=== PATIENT | male | born 1965 | race Caucasian/White ===

== ENCOUNTER → 2020-11-12 04:28 | Outpatient (CLI) | payer OTHER, SELFPAY ==
[2020-11-13 01:36] LABS: SARS-CoV-2 RNA PCR Negative
== END ==
PROVIDERS: PCP Internal Medicine; Visit Provider Internal Medicine
DX: R68.89 Other general symptoms and signs (principal); Z20.822 Contact with and (suspected) exposure to COVID-19
CPT/HCPCS: C9803; U0003; U0005

== ENCOUNTER → 2022-04-19 07:22 | Outpatient (CLI) | payer BC, SELFPAY ==
--- NOTE | ~2022-04-19 | XR_ITS ---
Right Hand Technique: PA and lateral views were obtained. Clinical History: Polyarthralgia Findings: No acute fracture or dislocation is seen. Osseous alignment is anatomic. There is mild dege nerative change of the interphalangeal joint of the thumb. Soft tissues are unremarkable. Impression: Mild degenerative change of the interphalangeal joint of the thumb. Reviewed, dictated and finalized at location . ESTIMATOR Impression: Mild degenerative change of the interphalangeal joint of the thumb.
--- NOTE | ~2022-04-19 | XR_ITS ---
Left Hand Technique: PA and lateral views were obtained. Clinical History: Polyarthralgia Findings: No acute fracture or dislocation is seen. Osseous alignment is anatomic. Joint spaces are p reserved. Soft tissues are unremarkable. Impression: Unremarkable left hand. Reviewed, dictated and finalized at location M. ATION PROFESSIONAL Impression: Unremarkable left hand.
== END ==
PROVIDERS: PCP Physician Assistant; Visit Provider Physician Assistant
DX: M19.041 Primary osteoarthritis, right hand (principal)
CPT/HCPCS: 73120

== ENCOUNTER 2023-07-31 06:58 | Outpatient (CLI) | payer BC, SELFPAY ==
--- NOTE | ~2023-07-31 | MR_ITS ---
MRI of the left shoulder Technique: Axial proton-density fat-sat images, coronal proton density fat-sat and T2 fat-sat images, and sagittal T1-weighted and T2 fat-sat images were acquired. Clinical History: Rotator cuff injury Findings: There is moderate to advanced AC joint degenerative change, bony productive change of both sides of the joint. Coracoclavicular, coracoacromial, and coracohumeral ligaments are intact. There are full-thickness complete tears involving the entirety of the supraspinatus and infraspinatus tendons, which are retracted to the medial aspect of the humeral head. Fluid-filled gap measures mahesh roximately 4.0 x 4.4 cm in extent. Subscapularis tendon is intact with mild tendinosis. Tendon of the long head of the biceps is probably intact. There is extensive superior labral tearing, probably extending to anterosuperior portion. Inferior glenohumeral ligament is intact. There is chondromalacia of the humeral head. No significant joint effusion evident. No definite muscle atrophy or edema evident. Impression: Complete, full-thickness tears of the entirety of the supraspinatus and infraspinatus tendons, as det jackie above. Superior labral tearing probably extending to the anterosuperior portion. Moderate to advanced AC joint degenerative change. Reviewed, dictated and finalized at [facility]. Impression: Complete, full-thickness tears of the entirety of the supraspinatus and infrasp inatus tendons, as detailed above. Superior labral tearing probably extending to the anterosuperior portion. Moderate to advanced AC joint degenerative change.
== END 2023-07-31 06:59 ==
PROVIDERS: PCP Physician Assistant; Visit Provider Physician Assistant
DX: S46.002D Unspecified injury of muscle(s) and tendon(s) of the rotator cuff of left shoulder, subsequent encounter (principal); X58.XXXD Exposure to other specified factors, subsequent encounter; M19.012 Primary osteoarthritis, left shoulder
CPT/HCPCS: 73221

== ENCOUNTER 2024-07-31 13:57 | Outpatient (CLI) | payer BC, SELFPAY ==
--- NOTE | ~2024-07-31 | XR_ITS ---
EXAMINATION: XR fl inj shoulder LT - MR/CT DATE: 07/31/2024 15:08 INDICATION: Left rotator cuff injury presenting with left shoulder weakness, pain and limited range o f motion post fall one month prior. TECHNIQUE: A time-out was performed to verify the patient's name, date of , and procedure to b e performed. The procedure including the risks, benefits, and alternatives was discussed with the pat ient. Risks discussed included bleeding and infection. The patient understood the risks and agreed to proceed. The skin overlying the rotator cuff interval the left glenohumeral joint was prepped and d raped in usual sterile fashion. Anesthetic was administered with 1% lidocaine subcutaneously. A 22 G needle was advanced under fluoroscopic guidance into the joint. Injection of 1 mL of Omnipaque 240 confirmed intra-articular position of the needle. Subsequently, injectate consisting of 12 mL of 2: 1:1 mixture of sterile saline:Omnipaque 240:1% lidocaine mixed 200:1 with 529 mg/mL Multihance gadoli nium contrast was instilled with intra-articular administration confirmed with intermittent fluorosc opy. The needle was removed and the entry site was cleaned and dressed. There were no immediate comp lications. Fluoroscopy exposure time was 0.2 minutes. The total number of images was 19. Total DAP wa s 0.448 Gycm^2. FINDINGS: Real-time fluoroscopy demonstrates the needle and contrast in the left glenohumeral joint. There is extension of contrast into the subacromial/subdeltoid bursa consistent with a full-thickness rotator cuff tear. IMPRESSION: 1. Successful left glenohumeral joint injection of a dilute gadolinium contrast mixture for subsequen t MRI arthrogram which will be dictated separately. 2. Full-thickness rotator cuff tear indicated by extension of contrast into the subacromial/subdeltoi d bursa. See separate MRI report for further detail. Reviewed, dictated and finalized at location A. IMPRESSION: 1. Successful left glenohumeral joint injection of a dilute gadolinium contrast mixture for subsequent MRI arthrogram which will be dictated separately. 2. Full-thickness rotator cuff tear indicated by extension of contrast into the subacromial/subdeltoid bursa. See separate MRI report for further detail.
--- NOTE | ~2024-07-31 | MR_ITS ---
EXAMINATION: MR shoulder LT w con DATE: 07/31/2024 15:34 INDICATION: Left shoulder weakness TECHNIQUE: Magnetic resonance imaging (MRI) of the left shoulder was performed following intra-artic ular gadolinium contrast injection and without intravenous contrast. Details of the glenohumeral join t injection have been dictated separately. Sequences included axial T2-weighted FS FSE, axial T1-luci ghted FS FSE, coronal oblique T1-weighted FS FSE, coronal oblique T2-weighted FSE, sagittal T2-weight ed FS FSE, sagittal T1-weighted FSE, and ABER (abduction external rotation) T1-weighted FS FSE. COMPARISON: 07/31/2023 FINDINGS: Coracoacromial arch: The acromion undersurface is curved in morphology (type II). Mild thickening of the coracoacromial li gament. Severe acromioclavicular osteoarthritis with change of interval acromioplasty osteotomy along the inferior margin of the distal clavicle. Rotator cuff: Change of interval rotator cuff repair with multiple suture anchors along the greater tuberosity. The re is a recurrent full-thickness tear involving the posterior half of the supraspinatus tendon and es sentially entire infraspinatus tendon. The tear defect measures approximately 3.5 cm AP by 5 cm media l collateral. The teres minor tendon is normal. Mild subscapularis tendinopathy without discrete tear . There is mild fatty atrophy of the supraspinatus and infraspinatus muscle bellies which is new sinc e the prior study. Biceps tendon, glenoid labrum and glenohumeral cartilage: . Moderate tendinopathy and longitudinal split tearing of the long head biceps tendon. There is a tea r at the 10:30-12:30 position of the superior glenoid labrum. There is partial thickness cartilage lo ss with smooth chondral surface along the humeral head and cephalad glenoid. Bones and other: Normal marrow signal with no edema, fracture or abnormal marrow replacing process. Articular cartilag e appears grossly normal although evaluation is limited on non arthrographic studies. Contrast exten ds through the full-thickness rotator cuff tear into the subacromial/subdeltoid bursa as well as into the acromioclavicular joint space. IMPRESSION: 1. Interval rotator cuff repair with recurrent full-thickness tear involving the posterior half of th e supraspinatus tendon and the entire infraspinatus tendon with mild fatty atrophy of the muscle villagran ies which is new since the prior study. 2. Mild glenohumeral osteoarthritis with SLAP tear along the superior glenoid labrum. 3. Moderate tendinopathy and split tearing of the long head biceps tendon. Reviewed, dictated and finalized at location A. IMPRESSION: 1. Interval rotator cuff repair with recurrent full-thickness tear involving th e posterior half of the supraspinatus tendon and the entire infraspinatus tendo n with mild fatty atrophy of the muscle bellies which is new since the prior st udy. 2. Mild glenohumeral osteoarthritis with SLAP tear along the superior glenoid l abrum. 3. Moderate tendinopathy and split tearing of the long head biceps tendon.
--- OUTSIDE RECORDS SUMMARY | 2024-07-31 14:04 | XMS_ITS | Data Portability ---
[facility] Organization [facility] Address [address] [place] [address] Assessment No assessment recorded. Plan of Treatment Reminders Order Date Submit Date Provider Last Modified By Organization Details Last Modified Time Details Appointments ANY 15 2024 07:30A M MAG Nj Not available Not available Not available Lab HbA1c (hemoglo bin A1c), blood 2023 [facility], [address], [place], [address], 06/26/2024 12:38:24 CMP, serum or plasma 2023 024 CHRISTOPHER [email or web address] [facility], [address], [place], [address], 06/26/2024 12:38:24 CBC w/ auto diff 2023 024 CHRISTOPHER [email or web address] [facility], [address], [place], [address], 06/26/2024 12:38:24 TSH + free T4, serum 2023 024 CHRISTOPHER [email or web address] [facility], [address], [place], [address], 06/26/2024 12:38:23 lipid panel, serum 2023 024 [email or web address] [employer] [facility], [address], [place], [address], 11/15/2023 11:15:27 CMP, serum or plasma 2023 024 [email or web address] [facility], [address], [place], [address], 11/15/2023 11:15:28 CBC w/ auto diff 2023 024 [email or web address] [facility], [address], [place], [address], 11/15/2023 11:15:28 vitamin B12 + folate, serum or blood 2023 024 [email or web address] [facility], [address], [place], [address], 11/15/2023 11:15:28 urinalys is, dipstick , reflex micro 2023 024 [email or web address] [facility], [address], [place], [address], 11/15/2023 11:15:28 PSA, serum or plasma 2023 024 [email or web address] [facility], [address], [place], [address], 11/15/2023 11:15:28 HbA1c (hemoglo bin A1c), blood 2023 024 [email or web address] [facility], [address], [place], [address], 11/15/2023 11:15:27 microalb umin/cre atinine, mass ratio, urine 2023 024 [email or web address] [facility], [address], [place], [address], 11/15/2023 11:15:27 TSH + free T4, serum 2023 024 [email or web address] [facility], [address], [place], [address], 11/15/2023 11:15:27 Referral None recorded . Procedures home sleep testing (PROC) 2023 024 [facility], [address] [place], [address], 06/23/2024 16:10:42 Surgeries None recorded . Imaging None recorded . Medication Orders None recorded . Patient TargetsNo targets recorded. Patient Instructions Encounter Date Encounter Id Patient Instructions Last Modified By Organization Details Last Modified Time 09/05/2023 [id number] A healthy lifestyle: care instructions Not available 09/05/2023 09:26:24 03/04/2024 [id number] A healthy lifestyle: care instructions Not available 03/04/2024 11:39:43 Reason for Referral None Reported. Results Created Date Observation Date Name Description Value Unit Range Abnormal Flag Note LastModifiedBy Organization Detail LastModifiedTime Result Notes None recorded. Problems Name Problem SNOMED Code Status Onset Date Resolution Date Notes Provider Name and Address Organization Details Recorded Time Hypothyroidism 10991926 Active 2023 MAG Nj Attn: Royal kasper,[address] [place], [address], [facility] 4 09:13:06 Benign essential hypertension 8424834 Active 2023 MAG Nj Attn: Royal kasper,[address] [place], [address], [facility] 4 09:13:06 Uncontrolled type 2 diabetes mellitus 746629421 Active 2023 MAG Nj Attn: Royal kasper,[address] [place], [address], [facility] 4 09:13:07 Body mass index 30+ - obesity 830646958 Active 2023 MAG Nj Attn: Royal kasper,[address] [place], [address], [facility] 4 09:13:08 Obesity 553996320 Active 2023 MAG Nj Attn: Royal kasper,[address] [place], [address], [facility] 4 09:13:09 Long-term drug therapy Active 2023 MAG Nj Attn: Royal kasper,[address] [place], [address], [facility] 4 11:29:55 Sleep apnea 39179967 Active 2023 MAG Nj Attn: Royal kasper,[address] [place], [address], [facility] 4 20:13:05 Psoriatic arthritis 565087122 Active 2023 MAG Nj Attn: Royal kasper,[address] [place], [address], [facility] 4 20:20:51 Problem Notes None recorded. Procedures Surgical History Date Name Laterality Status Provider Name and Address Organization Details Recorded Time Shoulder joint surgery completed Luz Marina Healy LPN [place] [facility] 03/04/2024 11:22:35 Imaging Results None recorded. Procedure Notes None recorded. Medical Equipment None Reported. Allergies Allergen ID Allergen Name Allergen Category Reaction Reaction Severity Criticality Documentation Date Start Date Code Code System Note Provider Name and Address Organization Details Recorded Time 359141 hydrocodo ne Not available Not available Not available Not available 09/05/2023 5489 RxNorm ANA ROSA Lopez, [facility] 4 09:02:32 278463 Tylenol medicatio n Not available Not available Not available 09/05/202326788 3 RxAlinarm ANA ROSA Lopez, [facility] 4 09:02:37 Medications Name Sig Start Date Stop Date Status Note LastModified by Organization Details LastModified Time FreeStyle Mary 2 Sensor use as directed 2023 active Not Available Not Available Not Avai lable FreeStyle Mary 2 Plus sensor Use 1 sensor every 15 days 2024 active Not Available Not Available Not Avai lable pioglitazon e 15 mg tablet TAKE 1 TABLET BY MOUTH DAILY 2024 active Not Available Not Available Not Avai lable metformin 500 mg tablet TAKE 2 TABLETS BY MOUTH TWICE DAILY WITH MEALS 2024 active Not Available Not Available Not Avai lable meloxicam 15 mg tablet active Not Available Not Available Not Available ondansetron HCl 4 mg tablet TAKE 1 TABLET BY MOUTH EVERY 4 TO 6 HOURS NEEDED active Not Available Not Available No t Available tramadol 50 mg tablet active Not Available Not Available No t Available methotrexat e sodium 2.5 mg tablet active Not Available Not Available Not Available levothyroxi ne 125 mcg tablet TAKE 1 TABLET BY MOUTH DAILY 2024 active Not Available Not Available Not Avai lable glimepiride 4 mg tablet 09/04 completed Not Available Not Available Not Available folic acid 1 mg tablet active Not Available Not Available Not Available losartan 100 mg tablet TAKE 1 TABLET BY MOUTH EVERY DAY 2024 active Not Available Not Available Not Avai lable amoxicillin 875 mg-potassiu m clavulanate 125 mg tablet TAKE 1 TABLET BY MOUTH EVERY 12 HOURS 07/26 completed Not Available Not Available Not Available vardenafil 20 mg tablet active Not Available Not Available Not Available tadalafil 20 mg tablet TAKE 1 TABLET BY MOUTH EVERY DAY NEEDED active Not Available Not Available No t Available BD Ultra-Fine Mini Pen Needle 31 gauge x 06/07 USE TO INJECT INSULIN TWICE DAILY DIRECTED active Not Available Not Available No t Available varenicline tartrate 1 mg tablet TAKE 1 TABLET BY MOUTH TWICE DAILY 09/04 completed Not Available Not Available Not Available varenicline tartrate 0.5 mg (11)-1 mg (42) tablets in a dose pack USE DIRECTED 09/04 completed Not Available Not Available Not Available Humalog KwikPen (U-100) Insulin 100 unit/mL subcutaneou s INJECT 12 UNITS SUBCUTANE OUSLY 3 TIMES DAILY NEEDED PER SLIDING SCALE active Not Available Not Available No t Available Jardiance 25 mg tablet TAKE 1 TABLET BY MOUTH DAILY 2024 active Not Available Not Available Not Avai lable Tresiba FlexTouch U-100 insulin 100 unit/mL (3 mL) subcutaneou s pen ADMINISTE R 35 UNITS UNDER THE SKIN EVERY NIGHT active Not Available Not Available No t Available FreeStyle Mary 2 Sensor kit USE DIRECTED TO MONITOR GLUCOSE. CHANGE SENSOR EVERY 14 DAYS active Not Available Not Available No t Available Vitals Date Recorded Body height Body mass index (BMI) Body weight Respiratory rate Oxygen saturation Oxygen saturation in Arterial blood by Pulse oximetry Heart rate Systolic blood pressure Diastolic blood pressure Provider Name and Address Organization Details Last Updated DateTime 4 185.42 cm 34.5 kg/m2 795075. 33 g 20 /min 98 % 98 % 67 /min 126 mm[Hg] 82 mm[Hg] Kaleb Hartley MA [facility] 09:09:50 Date Recorded Body height Body mass index (BMI) Body weight Heart rate Body temperature Oxygen saturation Oxygen saturation in Arterial blood by Pulse oximetry Systolic blood pressure Diastolic blood pressure Provider Name and Address Organization Details Last Updated DateTime 4 185.42 cm 34.4 kg/m2 632101. 61 g 72 /min 98.7 [degF] 100 % 100 % 140 mm[Hg] 80 mm[Hg] Luz Marina Healy LPN [facility] 11:21:00 Date Recorded Respiratory rate Systolic blood pressure Diastolic blood pressure Provider Name and Address Organization Details Last Updated DateTime 03/04/2024 18 /min 138 mm[Hg] 80 mm[Hg] MAG Nj Attn: [address] [place], [address], [facility] 03/04/2024 11:39:28 Social History Question Answer Notes LastModified by Organizat ion Details LastModified Time Tobacco Smoking Status Never Smoker Kaleb Hartley MA null, [facility] 09/05/2023 09:05:28 Do You Have An Advance Directive? Yes Will Information not available 09/05/2023 What Is Your Level Of Alcohol Consumption? Occasional Information not available 09/05/2023 Are You Blind Or Do You Have Difficulty Seeing? No Glasses Information not available 09/05/2023 What Is Your Level Of Caffeine Consumption? Moderate Information not available 09/05/2023 In The 14 Days Before Symptom Onset, Have You Had Close Contact With A Laboratory-confir med COVID-19 While That Case Was Ill? No Information not available 09/04/2023 In The 14 Days Before Symptom Onset, Have You Had Close Contact With A Person Who Is Under Investigation For COVID-19 While That Person Was Ill? No Information not available 09/04/2023 Have You Been To An Area Known To Be High Risk For COVID-19? No Information not available 09/04/2023 Are You Currently Employed? Yes Information not available 09/05/2023 Are You Deaf Or Do You Have Serious Difficulty Hearing? No Information not available 09/05/2023 What Type Of Diet Are You Following? REGULAR Information not available 09/05/2023 Are There Any Guns Present In Your Home? No Information not available 09/05/2023 What Was The Date Of Your Most Recent Tobacco Screening? 09/05/2023 Information not available 09/05/2023 Do You Use Your Seat Belt Or Car Seat Routinely? Yes Information not available 09/04/2023 Do You Have Smoke And Carbon Monoxide Detectors In Your Home? Yes Information not available 09/04/2023 Do You Use Sunscreen Routinely? Yes Information not available 09/05/2023 Has Tobacco Cessation Counseling Been Provided? Yes Information not available 09/04/2023 On What Date Was Tobacco Cessation Counseling Provided? 09/05/2023 Information not available 09/05/2023 Do You Or Have You Ever Used Any Other Forms Of Tobacco Or Nicotine? No Information not available 09/05/2023 Sex: Male Functional Status Question Answer Note LastModified by Organizat ion Details LastModified Time Are you able to care for yourself? Yes Information not available 09/04/2023 What is your exercise level? Occasional Information not available 09/05/2023 Mental Status None recorded. Family History Relationship Description Onset Age of this Age Resolved Age Notes LastModified by Organization Details LastModified Time Father Harmful pattern of use of alcohol tcarterma Not available 2023 10:20:06 Father Hypertensive disorder tcarterma Not available 2023 10:20:33 Sister Harmful pattern of use of alcohol tcarterma Not available 2023 10:20:06 Sister Blood coagulation disorder tcarterma Not available 2023 10:20:13 Sister Diabetes mellitus tcarterma Not available 2023 10:20:19 Sister Disorder of thyroid gland tcarterma Not available 2023 10:20:26 Sister Hypertensive disorder tcarterma Not available 2023 10:20:33 Medical History Condition Response Coronary Artery Disease N Other N Atrial Fibrillation N High Blood Pressure Y Kidney or Bladder Problems N Thyroid Problems Y GI Problems N Depression N COPD N Blood Clots N Skin Problems N Anemia N Heart Attack (DE) N Anxiety Disorder N Diabetes Y Muscle, Joint, or Bone Problems N Seizures/Epilepsy N Acid Reflux (GERD) N Cancer N Stroke N Asthma N Allergies N High Cholesterol N Hepatitis N Liver Disease N Headaches N Heart Failure N Osteoporosis N Immunizations Vaccine Type Date Status Note Provider Nam e and Address Organization Details Recorded Time Influenza, MDCK, quadrivalent, PF 05/31/2019 completed ANA ROSA [place], [place] [facility] 02/24/2024 11:14:57 Influenza, MDCK, quadrivalent, PF 11/24/2022 completed Kaleb Hart[place], [place] [facility] 02/24/2024 11:14:57 Influenza, MDCK, quadrivalent, PF 01/30/2022 completed Kaleb Hart[place], [place] [facility] 02/24/2024 11:14:57 COVID-19, mRNA, LNP-S, PF, 30 mcg/0.3 mL dose 04/30/2020 completed ANA ROSA [place] [facility] 02/24/2024 11:14:57 COVID-19, mRNA, LNP-S, PF, 30 mcg/0.3 mL dose 05/21/2020 completed ANA ROSA [place] [facility] 02/24/2024 11:14:57 COVID-19, mRNA, LNP-S, PF, 30 mcg/0.3 mL dose 01/31/2021 completed Kaleb Hart[place], [place] [facility] 02/24/2024 11:14:57 COVID-19, mRNA, LNP-S, bivalent, PF, 30 mcg/0.3 mL dose 12/08/2021 completed ANA ROSA [place] [facility] 02/24/2024 11:14:57 COVID-19, mRNA, LNP-S, PF, jeremy-sucrose, 30 mcg/0.3 mL 12/17/2022 completed ANA ROSA [place] [facility] 02/24/2024 11:14:57 Tdap 05/27/2023 completed ANA ROSA [place] [facility] 02/24/2024 11:14:57 Influenza, split virus, quadrivalent, PF 12/12/2019 completed ANA ROSA [place] [facility] 02/24/2024 11:14:57 Influenza, split virus, quadrivalent, PF 12/17/2020 completed ANA ROSA [place] [facility] 02/24/2024 11:14:57 Influenza, split virus, quadrivalent, PF 02/02/2016 completed ANA ROSA [place] [facility] 02/24/2024 11:14:57 Influenza, split virus, quadrivalent, PF 03/06/2018 completed ANA ROSA [place] [facility] 02/24/2024 11:14:57 Past Encounters Encounter ID Performer Location Encounter Start Date Encounter Closed Date Diagnosis/Indication Diagnosis SNOMED-CT Code Diagnosis ICD10 Code Diagnosis Note [id number] Nayan Key MD [facility] [place] [address] [place] [address] 09/05/2023 08:51:03 09/05/2023 09:34:54 Body mass index 30+ - obesity 477492891 Z68.34 discussed healthy diet, exercise, controllin g carbohydra sisi and added sugars in the diet Obesity 204950626 E66.8 Uncontroll ed type 2 diabetes mellitus 502561596 E11.65 pt is on oral and insulin therapy, multiple agents. due for updated a1c and albumin labs Benign ess ential hypertension 3933025 I10 stable on losartan 100mg daily. Hypothyroidism 53087146 E03.9 stable on levothyrox ine 125mcg daily. due for updated TFTs Adult heal th examination 953244064 Z00.01 wellness exam completed Cholesterol screening 27 5057003 Z13.220 fasting lipids are due. Screening for malignant neoplasm of prostate 383922755 Z12.5 annual psa due Long-term drug therapy 079239956 Z79.899 full cmp, cbc, b12, folate and ua due. [id number] Nayan Key MD [facility] [place] [address] [place] [address] 03/04/2024 11:14:15 03/04/2024 12:50:28 Uncontrolled type 2 diabetes mellitus 976561772 E11.65 pt is on oral and insulin therapy, multiple agents. due for updated a1c , last A1c was 7.3% on summer labs. Benign ess ential hypertension 2617738 I10 stable on losartan 100mg daily. Blood pressure is 138/80 Hypothyroidism 33776047 E03.9 stable on levothyrox ine 125mcg daily. due for updated TFTs Body mass index 30+ - obesity 833272942 Z68.34 BMI is 34.4 Obesity 020007036 E66.9 discussed healthy diet, exercise, controllin g carbohydra sisi and added sugars in the diet Long-term drug therapy 050334656 Z79.899 CBC and CMP labs are due now. Sleep apnea 42562605 G47 .30 high suspicion preoperati ve anesthesia evaluation letter sent from shoulder surgery and notified that patient needs to have formal sleep study evaluation . Home study ordered with apnea confirmed at by anesthesia during shoulder surgery. Psoriatic arthritis 1563 [address]127 L40.50 patient is managed by Rheumatolo gy and is taking MTX therapy and folic acid therapy. Health Concerns Section Related Observation LastModified by Organization Detai ls LastModified Time None Recorded Concern Status LastModified by Organization Details LastModified Time None Recorded Advance Directives Directive Y: will Payers Encounter Date Sequence Insurance Name Policy Number Policy [place] Covered Member ID [place] Member ID Guarantor Name 09/05/2023 1 [place] [id number] Jabier Joiner [id number] Jabier Joiner 03/04/2024 1 [facility] [id number] Jabier Joiner [id number] Jabier Joiner Notes Date Note Type Note Provider Name and Address Organization Details Recorded Time 4 text/htm l DiabetesReported bypatient.Notes:pt is on humalog kwik pen fast acting and tresiba long acting insulin. also on jardiance and metformin , and pioglitazone therapy. due for labsHypertensionReported bypatient.Notes:on losartan 100mg dailyThyroidReported bypatient.Notes:stable on levothyroxine 125mcg daily. due for labs Psoriatic arthritis hx. on MTX. MAG Nj Attn: Accounting[address] [facility], [place], [address], [facility] 09/26/2023 11:31:57 4 text/htm l DiabetesReported bypatient.Notes:pt is on humalog kwik pen fast acting and tresiba long acting insulin. also on jardiance and metformin , and pioglitazone therapy. due for labsHypertensionReported bypatient.Notes:on losartan 100mg dailyObstructive Sleep Apnea F/UReported bypatient.Quality:worsening; snoring with apnea Onset/Timing:chronic; progressively worse over last 1years Severity:does not limit daily activities Context:lack of adequate sleep;shift work;hypertension Associated Symptoms:excessive sleepiness during the day Prior Tests:thyroid panel; Preop anesthesia evaluation confirmed sleep apnea with a need for formal study Prior opinionPCPNotes:pt is interested in formal sleep study evaluation .ThyroidReported bypatient.Notes:stable on levothyroxine 125mcg daily. due for labs Psoriatic arthritis hx. on MTX. MAG Nj Attn: Accounting[address] [facility], [place], [address], [facility] 03/21/2024 20:30:40
--- OUTSIDE RECORDS SUMMARY | 2024-07-31 14:04 | XMS_ITS | Encounter Summary ---
Author Organization [facility] Address [facility] [place] [address] Care Team Providers Care Accounting System Expert Name Role Phone Ming Torres MD Primary Care Provider [phone] Chica Ramos Primary Care Provider [phone] Encounter Details Date Type Department Care Team (Late st Contact Info) Description 03/06/2018 Abstract HEALTH INFO SRVCS Scanned, Documents Social History Tobacco Use Types Packs/Day Years Used Date Smoking Tobacco: Former Cigarettes 0.5 20 Smokeless Tobacco: Never Alcohol Use Standard Drinks/Week Comments Yes 0 (1 standard drink = 0.6 oz pur e alcohol) less than monthly AUDIT-C Answer Date Recorded Frequency of Alcohol Consumption Monthly or less 03/06/2018 Average Number of Drinks 1 or 2 018 Frequency of Binge Drinking Not on file 02/22 Sex and Gender Information Value Date Recorded Sex Assigned at Male 03/06/2018 2:30 PM INTERNET SALESPERSON Legal Sex Male 10:06 PM CDT Gender Identity Male 03/06/2018 2:30 PM INTERNET SALESPERSON Sexual Orientation Straight 03/06/2018 2: 30 PM INTERNET SALESPERSON documented as of this encounter Functional Status documented as of this encounter Plan of Treatment Not on file documented as of this encounter Visit Diagnoses Not on filedocumented in this encounter Additional Health Concerns Infection Onset Date Last Indicated Resolved Time COVID-19 Rule Out 10/08/2019 10/08/2019 12/07/2019 12:33 AM CDT COVID-19 Rule Out 11/10/2020 11/10/2020 11/17/2020 12:32 AM CDT documented as of this encounter Care Teams Accounting System Expert Relationship Specialty Start Date End Date Ming Torres MD [address] [place] [address] PCP - General 09/27/16 07/10/23 Chica Ramos PA [address] [place] [address] PCP - General PHYSICIAN NURSING PROGRAM MANAGER 07/11/23 documented as of this encounter
--- OUTSIDE RECORDS SUMMARY | 2024-07-31 14:04 | XMS_ITS | Encounter Summary ---
Author Organization [facility] Address [facility] [place] [address] Care Team Providers Care Jewelry Store Manager Name Role Phone Ming Torres MD Primary Care Provider [phone] Chica Ramos Primary Care Provider [phone] Encounter Details Date Type Department Care Team [...] Sex Assigned at Male 03/06/2018 2:30 PM HEARING AID FITTER Legal Sex Male 10:06 PM CDT Gender Identity Male 03/06/2018 2:30 PM HEARING AID FITTER Sexual Orientation Straight 03/06/2018 2: 30 PM HEARING AID FITTER documented as of this encounter Functional Status [...] documented as of this encounter Care Teams Jewelry Store Manager Relationship Specialty Start Date End Date Ming Torres MD [address] [place] [address] PCP - General 09/27/16 07/10/23 Chica Ramos PA [address] [place] [address] PCP - General PHYSICIAN PE ELECTRICAL ENGINEER 07/11/23 documented as of this encounter
--- OUTSIDE RECORDS SUMMARY | 2024-07-31 14:04 | XMS_ITS | CONTINUITY OF CARE DOCUMENT ---
Author Name isaura delarosa Address Unknown Organization [facility] Address [address] [place] [address] [address] [place] [address] Phone [phone] Care Team Providers Care Reactor Operator Name Role Phone isaura delarosa Unavailable Unavailable INSURANCE PROVIDERS Payer name Policy type / Coverage type [place] red democrat ID [facility] [employer] insurance [employer] [id number]
--- OUTSIDE RECORDS SUMMARY | 2024-07-31 14:05 | XMS_ITS | Clinical Summary ---
Author Organization [facility] Address [facility] [place] [address] Care Team Providers Care Counter Caser Name Role Phone Chica Ramos Primary Care Provider [phone] Allergies Active Allergy Reactions Criticality Noted Date Comments Azithromycin Tachycardia 06/05/2018 Dextromethorphan-Guaifenesin Hives Medium 018 Hydrocodone Shakiness 03/06/2018 Acetaminophen Hives 07/11/2023 Medications Blood Glucose Monitoring Suppl (FREESTYLE FREEDOM LITE) w/Device Kit 11/11/19 15 Active Glucose Blood (FREESTYLE LITE) test strip 4 (four) times daily. 11/11/19 15 Active Insulin Pen Needle (NOVOFINE) 32G X 6 MM Misc 07/09/19 12 Active olmesartan 20 MG tabletIndications: Benign essential hypertension Take 1 tablet (20 mg total) by mouth daily. 30 tablet 5 04/11/19 19 Active insulin lispro (HUMALOG KWIKPEN) 100 UNIT/ML injection (PEN)Indications:U ncontrolled type 2 diabetes mellitus with hyperglycemia (CMS/HCC HHS/HCC) Per SS max dose 12 units as needed 5 pen 5 12/18/19 19 Active INVOKANA 300 MG tabletIndications: Uncontrolled type 2 diabetes mellitus with hyperglycemia (CMS/HCC HHS/HCC) TAKE 1 TABLET(300 MG) BY MOUTH DAILY 90 tablet 3 02/13/20 19 Active ibuprofen 800 MG tablet Take 800 mg by mouth every 6 (six) hours as needed for Pain. Active VARDENAFIL 20 MG tabletIndications: Erectile dysfunction of nonorganic origin TAKE 1 TABLET(20 MG) BY MOUTH DAILY NEEDED FOR ERECTILE DYSFUNCTION 10 tablet 5 09/30/19 22 Active Insulin Pen Needle (EASY TOUCH PEN NEEDLES) 31G X 5 MM MiscIndications:Un controlled type 2 diabetes mellitus with hyperglycemia (CMS/HCC HHS/HCC) USE FOUR TIMES DAILY 400 each 1 11/07/19 22 Active metFORMIN (GLUCOPHAGE) 500 MG tabletIndications: Uncontrolled type 2 diabetes mellitus with hyperglycemia (CMS/HCC HHS/HCC) TAKE 2 TABLETS(1000 MG) BY MOUTH TWICE DAILY 180 tablet 3 12/05/19 22 Active JARDIANCE 25 MG tabletIndications: Uncontrolled type 2 diabetes mellitus with hyperglycemia (CMS/HCC HHS/HCC) TAKE 1 TABLET(25 MG) BY MOUTH DAILY 90 tablet 1 12/05/19 22 Active losartan (COZAAR) 100 MG tabletIndications: Benign essential hypertension TAKE 1 TABLET(100 MG) BY MOUTH DAILY 90 tablet 1 12/29/19 22 Active NOVOLOG FLEXPEN 100 UNIT/ML injection (PEN)Indications:U ncontrolled type 2 diabetes mellitus with hyperglycemia (CMS/HCC HHS/HCC) INJECT UNDER THE SKIN PER SLIDING SCALE. MAX DOSE 12 UNITS NEEDED 15 mL 1 01/05/20 22 Active pioglitazone (ACTOS) 15 MG tabletIndications: Uncontrolled type 2 diabetes mellitus with hyperglycemia (CMS/HCC HHS/HCC) TAKE 1 TABLET(15 MG) BY MOUTH DAILY 90 tablet 02/24/20 22 Active levothyroxine (SYNTHROID) 125 MCG tabletIndications: Acquired hypothyroidism TAKE 1 TABLET(125 MCG) BY MOUTH EVERY MORNING 90 tablet 1 04/30/19 23 Active Continuous Blood Gluc Sensor (FREESTYLE GISEL 2 SENSOR) MiscIndications:Ty pe 2 diabetes mellitus with hyperglycemia, with long-term current use of insulin (CMS/HCC HHS/HCC) CHANGE SENSOR EVERY 14 DAYS 2 each 3 05/26/19 23 Active glimepiride (AMARYL) 4 MG tabletIndications: Uncontrolled type 2 diabetes mellitus with hyperglycemia (CMS/HCC HHS/HCC) TAKE 1 TABLET BY MOUTH TWICE DAILY BEFORE BREAKFAST AND SUPPER 180 tablet 3 06/01/19 23 Active insulin degludec (TRESIBA FLEXTOUCH) 100 UNIT/ML Solution Pen-injector injectionIndicatio ns:Uncontrolled type 2 diabetes mellitus with hyperglycemia ([facility]) ADMINISTER 35 UNITS UNDER THE SKIN EVERY NIGHT AT BEDTIME 12 mL 08/09/19 23 Active oxyCODONE immediate release (ROXICODONE) 5 MG immediate release tabletIndications: Acute Pain < 3 Day Supply Take 1 tablet (5 mg total) by mouth every 4 (four) hours as needed for Pain. Indications: Acute Pain < 3 Day Supply 3 tablet 07/11/19 24 Active Active Problems Problem Noted Date Diagnosed Date BMI 32.0-32.9,adult 07/10/2017 Overview (02/07/2018): Transitioned From: Overweight (BMI 25.0-29.9) Granuloma annulare 07/10/2017 Bilateral hip pain 04/30/2016 Low back pain 04/30/2016 Sacroiliac joint pain 02/02/2016 Right shoulder pain 10/06/2014 Supraventricular tachycardia ([facility]) 3 Irregular sleep-wake rhythm, nonorganic origin 1 Erectile dysfunction of nonorganic origin 2011 Benign essential hypertension 11/08/2011 Type 2 diabetes mellitus wit h hyperglycemia, with long-term current use of insulin ([facility]) 11/08/2011 Hypothyroidism 11/08/2011 Nicotine dependence 11/08/2011 Immunizations Immunization Administration Dates Next Due Fluzone 6 Months+ Quad (0.5 mL Prefilled Syringe) 12/12/2019,03/06/2018 Influenza (Generic) 12/11/2011 Influenza Adult (Generic) 12/17/2020,,05/31/2019,2015 PFIZER COVID-19 (ORIGINAL FORMULATION, PURPLE CAP) mRNA, LNP-S, PF, 30 MCG/0.3 ML DOSE 05/21/2020,04/30/2020 Family History Medical History Relation Comments Thyroid Brother Scleroderma Mother Diabetes Sister Thyroid Sister x2 Relation Status Comments Brother Mother Sister Social History Tobacco Use Types Packs/Day Years Used Date Smoking Tobacco: Some Days Cigarettes 0.3 20 Smokeless Tobacco: Never Tobacco Cessation:Ready to Q uit: No; Counseling Given: Yes Comments:1.5 Pack per week Alcohol Use Standard Drinks/Week Comments No 0 (1 standard drink = 0.6 oz pur e alcohol) less than monthly AUDIT-C Answer Date Recorded Frequency of Alcohol Consumption Never 06/05/2018 Average Number of Drinks Not asked 019 Frequency of Binge Drinking Not on file 05/23 PHQ-2 Answer Date Recorded PHQ-2 Score - If the patient scores above 3, please move on to questions 3-9 0 06/15/2020 Sex and Gender Information Value Date Recorded Sex Assigned at Male 03/06/2018 2:30 PM ADJUNCT TRAINER Legal Sex Male 10:06 PM CDT Gender Identity Male 03/06/2018 2:30 PM ADJUNCT TRAINER Sexual Orientation Straight 03/06/2018 2: 30 PM ADJUNCT TRAINER Last Filed Vital Signs Vital Sign Reading Time Taken Comments Blood Pressure 165/102 07/11/2023 4:30 PM CDT notified Pulse 77 07/11/2023 12:58 PM CDT Temperature 36.4 C (97.6 F) 07/11/2023 12:58 PM CDT Respiratory Rate 20 07/11/2023 12:58 PM CDT Oxygen Saturation 97% 07/11/2023 4:30 PM CDT Inhaled Oxygen Concentration - - Weight 113.4 kg (250 lb) 07/11/2023 12:58 PM CDT Height 182.9 cm (6') 07/11/2023 12:58 PM CDT Body Mass Index 33.91 07/11/2023 12:58 PM CDT Plan of Treatment Health Maintenance Due Date Last Done Comments Colorectal Cancer Screening Colonoscopy (10 Years) 1966 Kidney Health Evaluation 1966 Annual Physical 1969 Diabetes: Retinopathy Eye Exam 01/11/1984 Hepatitis C 01/11/1984 DTaP, Tdap and Td Vaccines (1 - Tdap) 1985 Hepatitis B Vaccines (1 of 3 - 19+ 3-dose series) 1985 Pneumococcal Vaccine: 50+ Years (1 of 2 - PCV) 1985 Zoster Vaccines (1 of 2) 01/11/2016 Hemoglobin A1C 05/18/2021 11/15/2020, 05/24, 04/15/2019, Additional history exists Lipid Panel 04/14/2022 04/14/2021, 03/26, 06/05/2018, Additional history exists COVID-19 Vaccine ( season) 2023 01/31/2021, 05/21/2020, 04/30/2020 PHQ-2 (Physician [place]) 03/25/2024 Meningococcal B Vaccine Aged Out No l onger eligible based on patient's age to complete this topic Meningococcal Vaccine Aged Out No cely sherry eligible based on patient's age to complete this topic RSV Immunizations Under 20 Months Aged Out No longer eligible based on patient's age to complete this topic Procedures Procedure Name Priority Date/Time Associated Diagnosis Comments LIPID PANEL Routine 04/14/2021 7:52 AM ADJUNCT TRAINER Uncontrolled type 2 diabetes mellitus with hyperglycemia Benign essential hypertension HEMOGLOBIN, GLYCOSYLATED Routine 11/15/2020 Uncontrolled type 2 diabetes mellitus with hyperglycemia from Last 3 Months or Most Recently Relevant to Health Maintenance Results * (ABNORMAL) LIPID PANEL (04/14/2021 7:52 AM ADJUNCT TRAINER) CHOLESTEROL 185 <200 mg/dL [facility] HDL 51 > OR = 40 mg/dL [facility] TRIGLYCERIDES 88 <150 mg/dL [facility] LDL (CALCULATED) 115(H) mg/dL (calc) [facility] Comment: Reference range: <100 Desirable range <100 mg/dL for primary prevention; <70 mg/dL for patients with CHD or diabetic patients with > or = 2 CHD risk factors. LDL-C is now calculated using the Jesús-Omer calculation, which is a validated novel method providing better accuracy than the Friedewald equation in the estimation of LDL-C. Jesús CALLAWAY et al. SIGRID. 2013;310(19): 4666-5206 (http://education.[employer].Programmr/faq/VIH879) CHOL/HDL RATIO 3.6 <5.0 (calc) [facility] NON HDL CHOLESTEROL 134(H) <130 mg/dL (calc) [facility] Comment: For patients with diabetes plus 1 major ASCVD risk factor, treating to a non-HDL-C goal of <100 mg/dL (LDL-C of <70 mg/dL) is considered a therapeutic option. 04/14/2021 7:52 AM ADJUNCT TRAINER 04/14/2021 7:52 AM ADJUNCT TRAINER Narrative [facility] - 04/15/2021 3:59 AM ADJUNCT TRAINER VARIFIED ALL INFO/HAD INS CARD ON PHONE FASTING:YES FASTING: YES Ming Torres MD LABORATORY Final Result [facility] [address] [id number] * (ABNORMAL) A1C (BACK OFFICE) (11/15/2020) HGB A1C 8.2(A) % [facility] 11/15/2020 Ming Torres MD LABORATORY Final Result Performing Organization Address [facility]/ZIP Co de Phone Number [facility] [address] [place] [address], from Last 3 Months or Most Recently Relevant to Health Maintenance Insurance [facility] Care Teams Counter Caser Relationship Specialty Start Date End Date Chica Ramos PA PCP - General PHYSICIAN ASSISTANT TO THE DEAN 07/11/23
--- OUTSIDE RECORDS SUMMARY | 2024-07-31 14:05 | XMS_ITS | Clinical Summary ---
Author Organization [facility] Address [address] [place] [address] Care Team Providers Care Associate Merchandise Planner Name Role Phone Dar Camara MD Unavailable [phone] Chica Ramos Primary Care Pr ovider Eliz Luong Unavailable [phone] Allergies Active Allergy Reactions Criticality Noted Date Comments Acetaminophen Hives Medium 07/11/2023 Azithromycin Palpitations Low 06/05/2018 Dextromethorphan-Guaifenesi n Hives Medium 03/03/2018 Hydrocodone Sweating Low 01/20/2018 Other Reactions: Pale Medications levothyroxine (SYNTHROID, LEVOTHROID) 150 mcg tablet Take 1 tablet (150 mcg total) by mouth daily 01/20/20 18 Active metFORMIN (GLUCOPHAGE) 500 mg tablet TK 2 TS PO BID 4 12/23/19 18 Active pioglitazone (ACTOS) 15 mg tabletIndication s:type 2 diabetes mellitus TK 1 T PO D IN THE MORNING 5 12/23/19 18 Active BD ULTRA-FINE MINI PEN NEEDLE 31 gauge x 3/16 needle USE UTD 5 01/13/20 18 Active losartan (COZAAR) 100 mg tablet Take 1 tablet (100 mg total) by mouth daily 07/21/19 22 Active empagliflozin (Jardiance) 25 mg tablet Jardiance 25 mg tablet TAKE 1 TABLET BY MOUTH EVERY DAY 12/05/19 22 Active tadalafiL (CIALIS) 20 mg tablet Take 1 tablet (20 mg total) by mouth daily as needed Active HumaLOG 100 unit/mL pen for injection INJECT 12 UNITS SUBCUTANEOUSLY 3 TIMES DAILY NEEDED PER SLIDING SCALE Active insulin degludec (TRESIBA FLEXTOUCH U-100 SUBQ) Inject 35 Units under the skin every evening Active multivit-min/fol ic/vit K/lycop (MEN'S 50 PLUS MULTIVITAMIN ORAL) Take by mouth daily Active ondansetron (ZOFRAN) 4 mg tablet Every 4-6 hours as needed 30 tablet 1 11/21/19 24 Active meloxicam (MOBIC) 15 mg tabletIndication s:Polyarthralgia TAKE 1 TABLET BY MOUTH DAILY 90 tablet 1 11/26/19 24 Active methotrexate 2.5 mg tablet TAKE 8 TABLETS BY MOUTH ONCE WEEKLY 32 tablet 04/10/19 25 Active folic acid (FOLVITE) 1 mg tablet Take 1 tablet (1,000 mcg total) by mouth daily 90 tablet 3 05/06/19 25 Active Active Problems Problem Noted Date Diagnosed Date Traumatic tear of left rotator cuff, initial enc ounter 11/08/2023 Arthritis of left acromioclavicular joint 2023 Impingement syndrome of left shoulder 11/08/2023 Superior glenoid labrum lesion of left shoulder 11/08/2023 Biceps tendonitis on left 11/08/2023 Pain of left thumb 01/23/2023 Assessment & Plan (05/30/2023 9:09 AM CLICKER OPERATOR): Moderate/marked spurring of L 1st CMC joint on US could correlate with mechanical thumb pain. +grind test. Previously discussed USG kenalog injection however he deferred and could reconsider in the future if necessary. Continue meloxicam 15mg daily. Assessment & Plan (01/23/2023 9:49 AM CDT): Moderate/marked spurring of L 1st CMC joint on US could correlate with mechanical thumb pain. +grind test. Discussed USG kenalog injection however he defers at this time. Continue meloxicam 15mg daily. 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 Assessment & Plan (09/24/2023 8:14 AM CDT): Hepatitis panel negative: 03/2022 Assessment & Plan (05/30/2023 8:37 AM CLICKER OPERATOR): Hepatitis panel negative: 03/2022 Assessment & Plan (01/23/2023 9:14 AM CDT): Hepatitis panel negative: 03/2022 Assessment & Plan (11/29/2022 8:55 AM CDT): Hepatitis panel negative: 03/2022 Assessment & Plan (10/17/2022 11:13 AM CDT): Hepatitis panel negative: 03/2022 Assessment & Plan (09/11/2022 10:55 AM CDT): Hepatitis panel negative: 03/2022 Inflammatory arthritis 04/13/2022 Overview (05/03/2022): Labs 04/13/22: Cr 0.93, Ca 10.4, cbc wnl, esr 2, crp 1.1mg/L, hepatitis negative AVISE 04/13/22: +MONICA by romina only XR L hand 04/19/22: unremarkable US Left hand/wrist 05/02/22: 1) Grade 1 power Doppler of the dorsal wrist, grade 2 of the radial scaphoid joint 2) Narrowing with possible bone spurring present of the scapho-lunate joint 3) Small hyper echoic density within the dorsal 1st MCPJ could represent loose body or prior trauma with grade 1 volar power Doppler 4) Moderate synovial thickening of the 2nd MCPJ with erosion of the metacarpal head 5) Marked synovial thickening of the 3rd MCPJ 6) Mild thickening of the 4th and 5th MCPJ; erosion vs ruptured cortical cyst of the 5th metacarpal head 7) Marked synovial thickening of the 2nd and 3rd PIP with grade 1 effusion of the 2nd PIPJ 8) Moderate to marked spurring of the 1st CMC joint Assessment & Plan (09/24/2023 8:42 AM CDT): Low cdai. Initially c/o rash resembling psoriasis on his lower legs and low back and chronic joint pain in the thumbs (L>R). Denies hx of iritis/uveitis. Isolated MONICA on AVISE. L 2nd MCP erosion on hand US suggests an inflammatory arthritis. Based on rash on lower legs and Fhx of daughter and father with PsO, would favor psoriatic arthritis. Moderate/marked spurring of L 1st CMC joint on US could correlate with mechanical thumb pain. Remains on MTX 20mg weekly and meloxicam 15mg daily with good control of his joint symptoms. Overall pain remains tolerable and he defers changes to his treatment plan at this time. Continue MTX 20mg weekly and folic acid 1mg daily. Continue meloxicam 15mg daily. Should he notice increasing joint complaints, would then consider addition of a biologic such as humira due to erosive damage already seen on US. Routine labs today. Follow up in 3-4 months. Sooner if needed. Of note: discussed MTX and surgery and that per ACR guidelines he does not need to hold MTX for rotator cuff repair surgery. Assessment & Plan (05/30/2023 9:11 AM CLICKER OPERATOR): Low cdai. Initially c/o rash resembling psoriasis on his lower legs and low back and chronic joint pain in the thumbs (L>R). Denies hx of iritis/uveitis. Isolated MONICA on AVISE. L 2nd MCP erosion on hand US suggests an inflammatory arthritis. Based on rash on lower legs and Fhx of daughter and father with PsO, would favor psoriatic arthritis. Moderate/marked spurring of L 1st CMC joint on US could correlate with mechanical thumb pain. Remains on MTX 20mg weekly and meloxicam 15mg daily with good control of his joint symptoms. Overall pain remains tolerable and he defers changes to his treatment plan at this time. Continue MTX 20mg weekly and folic acid 1mg daily. Continue meloxicam 15mg daily. Should he notice increasing joint complaints, would then consider addition of a biologic such as humira due to erosive damage already seen on US. Routine labs today. Follow up in 3-4 months. Sooner if needed. Assessment & Plan (01/23/2023 9:49 AM CDT): Low cdai. Initially c/o rash resembling psoriasis on his lower legs and low back and chronic joint pain in the thumbs (L>R). Denies hx of iritis/uveitis. Isolated MONICA on AVISE. L 2nd MCP erosion on hand US suggests an inflammatory arthritis. Based on rash on lower legs and Fhx of daughter and father with PsO, would favor psoriatic arthritis. Moderate/marked spurring of L 1st CMC joint on US could correlate with mechanical thumb pain. Started MTX 15mg weekly in 08/2022 but continues to c/o worsening joint symptoms so increased to 20mg weekly with improvement of baseline pain. Overall pain remains tolerable and he defers changes to his treatment plan at this time. Continue MTX 20mg weekly and folic acid 1mg daily. Continue meloxicam 15mg daily. Should he have trouble reducing meloxicam or notice increasing joint complaints, would then consider addition of a biologic such as humira due to erosive damage already seen on US. Routine labs today. Follow up in 2-3 months. Sooner if needed. Assessment & Plan (11/29/2022 9:10 AM CDT): Moderate cdai. Initially c/o rash resembling psoriasis on his lower legs and low back and chronic joint pain in the thumbs (L>R). Denies hx of iritis/uveitis. Isolated MONICA on AVISE. L 2nd MCP erosion on hand US suggests an inflammatory arthritis. Based on rash on lower legs and Fhx of daughter and father with PsO, would favor psoriatic arthritis. Moderate/marked spurring of L 1st CMC joint on US could correlate with mechanical thumb pain. Started MTX 15mg weekly in 08/2022 but continues to c/o worsening joint symptoms so will increase 20mg weekly. Increase MTX 20mg weekly and continue folic acid 1mg daily. Continue meloxicam 15mg daily. Should he have trouble reducing meloxicam or notice increasing joint complaints, would then consider addition of a biologic such as humira due to erosive damage already seen on US. Follow up at next scheduled visit and will check labs then. Sooner if needed. Assessment & Plan (10/17/2022 11:40 AM CDT): Low cdai. Initially c/o rash resembling psoriasis on his lower legs and low back and chronic joint pain in the thumbs (L>R). Denies hx of iritis/uveitis. Isolated MONICA on AVISE. L 2nd MCP erosion on hand US suggests an inflammatory arthritis. Based on rash on lower legs and Fhx of daughter and father with PsO, would favor psoriatic arthritis. Moderate/marked spurring of 1st CMC joint on US may could correlate with mechanical thumb pain. Started MTX 15mg weekly in 08/2022 with overall improvement of synovitis and pain. Denies any s/e. Will continue MTX 15mg weekly and folic acid 1mg daily. Due to positive response already, will give this more time to reach full effectiveness at current dose before considering increasing. Will reduce meloxicam 15mg to be taken only as needed. Should he have trouble reducing meloxicam or notice increasing joint complaints, would then consider increasing MTX next. Recent labs reviewed with patient. Follow up in 2- 3 months. Sooner if needed. Assessment & Plan (09/11/2022 10:54 AM CDT): 57-year-old male presenting with a PMHx of T2DM, Graves disease, HTN, cataracts, SVT, Shingles (06/2021), and diabetic retinopathy c/o rash resembling psoriasis on his lower legs and low back and chronic joint pain in the thumbs (L>R). Denies hx of iritis/uveitis. Rheumatological work up revealed isolated MONICA by romina only. XR of the bilateral hands was unremarkable. US of the L hand/wrist revealed 2nd MCP erosion and possible erosion vs ruptured cortical cyst of 5th MCP along with inflammatory findings throughout several MCP and PIP joints. US also revealed moderate/marked spurring of 1st CMC joint which could correlate with his mechanical pain. US findings with erosive change are concerning for an inflammatory arthritis. Based on rash on lower legs and Fhx of daughter and father with PsO, would favor psoriatic arthritis. Discussed concerns regarding medication and he is in agreement to start MTX 15mg weekly and folic acid 1mg daily. Okay to continue meloxicam 15mg daily. Will check routine labs next visit. Follow up in 1 month. Sooner if needed. Assessment & Plan (05/17/2022 1:53 PM CLICKER OPERATOR): 57-year-old male presenting with a PMHx of T2DM, Graves disease, HTN, cataracts, SVT, Shingles (06/2021), and diabetic retinopathy c/o rash resembling psoriasis on his lower legs and low back and chronic joint pain in the thumbs (L>R). Denies hx of iritis/uveitis. Rheumatological work up revealed isolated MONICA by romina only. XR of the bilateral hands was unremarkable. US of the L hand/wrist revealed 2nd MCP erosion and possible erosion vs ruptured cortical cyst of 5th MCP along with inflammatory findings throughout several MCP and PIP joints. US also revealed moderate/marked spurring of 1st CMC joint which could correlate with his mechanical pain. US findings with erosive change are concerning for an inflammatory arthritis. Based on rash on lower legs, would favor psoriatic arthritis however he does not have a definitive diagnosis of psoriasis. Recommend further evaluation by a food assembler commissary kitchen. Start MTX 15mg weekly and folic acid 1mg daily. Patient advised of the side effects of the medication, including but not limited to increased risk of infection, GI upset, increased LFTs, mouth sores, rash, diarrhea, and/or blood count abnormalities. Continue meloxicam 15mg daily. Follow up in 1 month. Sooner if needed. Seen with Dr. Camara. Assessment & Plan (04/13/2022 12:29 PM CLICKER OPERATOR): 57-year-old male presenting with a PMHx of T2DM, Graves disease, HTN, cataracts, SVT, Shingles (06/2021), and diabetic retinopathy c/o rash resembling psoriasis on his lower legs and low back and chronic joint pain in the thumbs (L>R). Synovitis is noted in the bilateral hands mainly in the wrists and MCP joints on exam today which is concerning for an inflammatory arthritis. Denies hx of iritis/uveitis. Symptoms and exam are suspicious for psoriatic arthritis. Will order appropriate serologies, radiographs, and a left hand/wrist US to further evaluate. Will stop ibuprofen and start meloxicam 15mg daily. Discussed side effects of the medication, including but not limited to GI upset, kidney, and ulcers. Follow up in 2 weeks. Sooner if needed. Seen with Dr. Camara. Rash 04/13/2022 Assessment & Plan (09/24/2023 8:15 AM CDT): Rash resembling psoriasis on bilateral lower legs (L>R) improved with initiation of MTX. Reports hx of similar rash over the intergluteal cleft. Consider evaluation by derm for definitive diagnosis if rash would worsen. Fhx of daughter and father with psoriasis. Assessment & Plan (05/30/2023 9:08 AM CLICKER OPERATOR): Rash resembling psoriasis on bilateral lower legs (L>R) improved with initiation of MTX. Reports hx of similar rash over the intergluteal cleft. Consider evaluation by derm for definitive diagnosis if rash would worsen. Fhx of daughter and father with psoriasis. Assessment & Plan (01/23/2023 9:47 AM CDT): Rash resembling psoriasis on bilateral lower legs (L>R) improved with initiation of MTX. Consider evaluation by derm for definitive diagnosis if rash would worsen. Fhx of daughter and father with psoriasis. Assessment & Plan (11/29/2022 9:01 AM CDT): Rash resembling psoriasis on bilateral lower legs (L>R) improved with initiation of MTX. Consider evaluation by derm for definitive diagnosis if rash would worsen. Fhx of daughter and father with psoriasis. Assessment & Plan (10/17/2022 11:17 AM CDT): Rash resembling psoriasis on bilateral lower legs (L>R). Recommend otc topical cortisone cream. Suspect PsA so will monitor for improvement with tx of arthritis. Consider evaluation by derm for definitive diagnosis. Fhx of daughter and father with psoriasis. Assessment & Plan (09/11/2022 10:49 AM CDT): Rash resembling psoriasis on bilateral lower legs (L>R). Recommend otc topical cortisone cream. Suspect PsA so will monitor for improvement with tx of arthritis. Consider evaluation by derm for definitive diagnosis. Fhx of daughter and father with psoriasis. Assessment & Plan (05/17/2022 2:37 PM CLICKER OPERATOR): Rash resembling psoriasis on bilateral lower legs (L>R). Recommend otc topical cortisone cream. Suspect PsA so will monitor for improvement with tx of arthritis. Consider evaluation by derm for definitive diagnosis. Pt is going to establish with PCP soon and discuss referral then. Assessment & Plan (04/13/2022 12:34 PM CLICKER OPERATOR): Rash resembling psoriasis on bilateral lower legs (L>R). Recommend otc topical cortisone cream. Suspect PsA so will monitor for improvement with tx of arthritis. If rash worsens, persists could get dermatologic evaluation for further treatment/topicals. Paroxysmal atrial fibrillation 03/03/2018 Encounters Date Type Department Care Team Description 06/25/2024 Telephone [facility] Orthopedics and Sports Medicine [address] [place] [address] [address] [address] Eliz Luong PA 06/18/2024 Orders Only [facility] Orthopedics and Sports Medicine [address] [place] [address] [address] [place] [address] Eliz Luong PA Shoulder weakness (Primary Dx); Traumatic tear of left rotator cuff, unspecified tear extent, subsequent encounter 06/16/2024 Telephone [facility] Orthopedics and Sports Medicine [address] [place] [address] [address] [address] Blanche Juarez MA 05/19/2024 8:15 AM CLICKER OPERATOR Office Visit [facility] Orthopedic and Sports Medicine [address] [place] [id number] Eliz Luong PA Shoulder weakness (Primary Dx); Traumatic tear of left rotator cuff, unspecified tear extent, subsequent encounter from Last 3 Months Medical History Medical History Date Comments Hypertension Diabetes mellitus (HCC) Graves disease RA (rheumatoid arthritis) (HCC) Family History Medical History Relation Name Comments No Known Problems Mother Relation Name Status Comments Mother Social History Tobacco Use Types Packs/Day Years Used Date Smoking Tobacco: Former Cigarettes Smokeless Tobacco: Never Tobacco Cessation:Counseling Given: Not Answered Alcohol Use Standard Drinks/Week Comments No 0 (1 standard drink = 0.6 oz pur e alcohol) AUDIT-C Answer Date Recorded Q1: How often do you have a drink containing alcohol? Never 01/02/2024 Q2: How many drinks containi ng alcohol do you have on a typical day when you are drinking? Patient does not drink Q3: How often do you have si x or more drinks on one occasion? Never 01/02/2024 Personal Safety Answer Date Recorded Have you ever been in or are you currently in a harmful physical or emotional relationship or is someone making you feel afraid or unsafe? Denies 11/21/2023 Sex and Gender Information Value Date Recorded Sex Assigned at Not on file Legal Sex Male 8:29 PM CLICKER OPERATOR Gender Identity Not on file Sexual Orientation Not on file Obstetrics History Last Filed Vital Signs Vital Sign Reading Time Taken Comments Blood Pressure 154/79 05/19/2024 8:18 AM CLICKER OPERATOR Pulse 69 05/19/2024 8:18 AM CLICKER OPERATOR Temperature 36.5 C (97.7 F) 11/21/2023 1:10 PM CDT Respiratory Rate 16 05/19/2024 8:18 AM CLICKER OPERATOR Oxygen Saturation 98% 11/21/2023 1:10 PM CDT Inhaled Oxygen Concentration - - Weight 118.7 kg (261 lb 11.2 oz) 05/19/2024 8:18 AM CLICKER OPERATOR Height 185.4 cm (6' 1 ) 05/19/2024 8:18 AM CLICKER OPERATOR Body Mass Index 34.53 05/19/2024 8:18 AM CLICKER OPERATOR Plan of Treatment Health Maintenance Due Date Last Done Comments Colon Cancer Screening-Colonoscopy 1966 Depression Screening 1966 Prostate Cancer Screening-PSA 1966 DTaP/Tdap/Td Vaccine (1 - Tdap) 1977 Hepatitis B Screening 01/11/1984 Regular Well Visit/Exam 18-64 01/11/1984 Pneumococcal vaccine <65 (1 of 2 - PCV) 1985 Zoster Vaccine (1 of 2) 1985 Covid-19 Vaccine (4 - 2023-2 5 season) 2023 01/31/2021, 05/21/2020, 04/30/2020 Influenza Vaccine (Season Ended) 2024 12/17/2020, 12/12/2019, 05/31/2019, Additional history exists Hepatitis C Screening Completed 04/13/2022 Medical Devices Implanted Type Area Quality System Manager Device Identifier Shelf Expiration Date Model / Serial / Lot [employer] Suture Alphavent 4.75mm With 3-Strands 1.4mm Xbraid Tt [id number] - [id number] Implanted:Qty : 1 on 11/21/2023 by Az Real MD at [facility] Left: Shoulder [employer] [id number] 01/06/2025 [id number] / / [id number] [employer] Suture Fargo Triple Loaded Knotless Fibertak 2.6mm Ar-[id number] - [id number] Implanted:Qty : 1 on 11/21/2023 by Az Real MD at [facility] Left: Shoulder [employer] [id number] 07/22/2028 AR-[id number] / / [id number] [employer] Swivelock C 4.75mm 19.1mm Closed Eyelet Vent [employer] Suture Ar-[id number] - [id number] Implanted:Qty : 1 on 11/21/2023 by Az Real MD at [facility] Left: Shoulder [employer] 04/24/2027 AR-[id number] / / [id number] [employer] Swivelock C 4.75mm 19.1mm Closed Eyelet Vent [employer] Suture Ar-[id number] - [id number] Implanted:Qty : 1 on 11/21/2023 by Az Real MD at [facility] Left: Shoulder [employer] 04/24/2027 AR-[id number] / / [id number] Procedures Procedure Name Priority Date/Time Associated Diagnosis Comments HEPATITIS PANEL, ACUTE Routine 04/13/2022 11:41 AM CLICKER OPERATOR Polyarthralgia Fatigue, unspecified type from Last 3 Months or Most Recently Relevant to Health Maintenance Results * Hepatitis panel, acute (04/13/2022 11:41 AM CLICKER OPERATOR) Hep A IgM NON-REACTI VE NON-REACT FLORESITA [facility] Comment: For additional information, please refer to http://education.[employer].AOL/faq/ZDA743 (This link is being provided for informational/ educational purposes only.) HepBsAg NON-REACTI VE NON-REACT FLORESITA [facility] Hep B core IgM NON-REACTI VE NON-REACT FLORESITA [facility] Hep C Ab NON-REACTI VE NON-REACT FLORESITA [facility] SIGNAL TO CUT-OFF <0.02 <1.00 [facility] Comment: HCV antibody was non-reactive. There is no laboratory evidence of HCV infection. In most cases, no further action is required. However, if recent HCV exposure is suspected, a test for HCV RNA (test code 51839) is suggested. For additional information please refer to http://education.[employer]/faq/JSO49i5 (This link is being provided for informational/ educational purposes only.) Blood 04/13/2022 11:4 1 AM CLICKER OPERATOR 04/13/2022 11:41 AM CLICKER OPERATOR [facility] - NERAL ORDERABLES Final Result [facility] [id number] [place] [address] from Last 3 Months or Most Recently Relevant to Health Maintenance [facility] Care Teams Associate Merchandise Planner Relationship Specialty Start Date End Date Chica Ramos PA [address] [place] [address] PCP - General Physician Audio Visual Manager 04/13/22 Dar Camara MD [address] [place] [address] Consulting Physician Rheumatology 03/20/22 Eliz Luong PA [address] [place] [address] [place] [address] Physician Audio Visual Manager Orthopedic Surgery 11/21/23
--- OUTSIDE RECORDS SUMMARY | 2024-07-31 14:05 | XMS_ITS | Data Portability ---
Author Organization [place] - [facility] [place], Main Office Address [address] [place] [address] Assessment No assessment recorded. Plan of Treatment Reminders Order Date Submit Date Provider Last Modified By Organization Details Last Modified Time Details Appointments None recorded. Lab HbA1c (hemoglobin A1c), blood 2022 023 [email or web address] 4 [employer] [facility], [address], [place], [address], 3 10:23:16 CMP, serum or plasma 2022 023 [email or web address] 4 [facility], [address], [place], [address], 3 10:23:25 TSH + free T4, serum 2022 023 [email or web address] [employer] [facility], [address], [place], [address], 3 10:23:33 lipid panel, serum 2022 023 CHRISTOPHERADP [facility], [address], [place], [address], 3 13:15:31 CMP, serum or plasma 2022 023 CHRISTOPHERADP [facility], [address], [place], [address], 3 13:15:32 CBC w/ auto diff 2022 023 CHRISTOPHREADP [facility], [address], [place], [address], 3 13:15:33 urinalysis, complete 2022 023 CHRISTOPHERProtoGeo [facility], [address], [place], [address], 3 13:15:34 PSA, serum or plasma 2022 023 CHRISTOPHERProtoGeo [facility], [address], [place], [address], 3 13:15:35 HbA1c (hemoglobin A1c), blood 2022 023 [email or web address] [employer] [facility], [address], [place], [address], 3 13:15:33 microalbumi n/creatinin e, mass ratio, urine 2022 023 CHRISTOPHER[employer] [facility], [address], [place], [address], 3 13:15:29 TSH + free T4, serum 2022 023 [email or web address] [employer] [facility], [address], [place], [address], 3 13:15:30 Referral None recorded. Procedures None recorded. Surgeries None recorded. Imaging None recorded. Medication Orders tadalafil 20 mg tablet 2022 023 [id number], [address], [place], [id number], 3 12:05:16 varenicline tartrate 0.5 mg (11)-1 mg (42) tablets in a dose pack 2022 023 [email or web address] [id number], [address], [place], [place], [id number], 3 08:49:04 Patient TargetsNo targets recorded. Patient InstructionsNo instructions recorded. Reason for Referral None Reported. Results Created Date Observation Date Name Description Value Unit Range Abnormal Flag Note LastModifiedBy Organization Detail LastModifiedTime 08/24/1908/24/2022 ALBUM IN, RANDO M URINE W/CRE ATINI NE creatinine, random urine 66 mg/dL 20-320 normal Not Available [facility] [employer] [address] [address] [place], [address], 08/24/2022 13:15:29 08/24/19 23 08/24/2022 ALBUM IN, RANDO M URINE W/CRE ATINI NE albumin, urine 0.2 mg/dL see note: normal Refer ence Range : Refer ence Range Not estab lishe d Not Available [facility] [employer] [address] [address] [place], [address], 08/24/2022 13:15:29 08/24/19 23 08/24/2022 ALBUM IN, RANDO M URINE W/CRE ATINI NE albumin/crea tinine ratio, random urine 3 mcg/m g_cre at <30 normal The ADA defin es abnor malit ies in album in excre tion as follo ws: Album inuri a Categ ory Resul t (mcg/ mg creat inine ) Mya l to Mildl y incre ased <30 Moder ately incre ased 30-29 9 [address] incre ased > OR = 300 The ADA recom mends that at least two of three speci mens colle cted withi n a 3-6 month perio d be abnor mal befor e consi uri g a patie nt to be withi n a diagn ostic categ ory. Not Available [facility] [employer] [address] [address] [place], [address], 08/24/2022 13:15:29 08/24/19 23 08/24/2022 TSH+F REE T4 TSH 1.55 mIU/L 0.40-4 .50 normal Not Available [address], [address], 08/24/2022 13:15:30 08/24/19 23 08/24/2022 TSH+F REE T4 T4, free 1.4 NG/dL 0.8-1. 8 normal Not Available [address], [address], 08/24/2022 13:15:30 08/24/19 23 08/24/2022 LIPID PANEL WITH RATIO S cholesterol, total 171 mg/dL <200 normal Not Available [address], [address], 08/24/2022 13:15:31 08/24/19 23 08/24/2022 LIPID PANEL WITH RATIO S HDL cholesterol 55 mg/dL > or = 40 normal Not Available [address], [address], 08/24/2022 13:15:31 08/24/19 23 08/24/2022 LIPID PANEL WITH RATIO S triglyceride s 80 mg/dL <150 normal Not Available [address], [address], 08/24/2022 13:15:31 08/24/19 23 08/24/2022 LIPID PANEL WITH RATIO S LDL-choleste rol 99 mg/dL _(marty c) normal Refer ence range : <100 Crystal able range <100 mg/dL for prima ry preve ntion ; <70 mg/dL for patie nts with CHD or diabe tic patie nts with > or = 2 CHD risk facto rs. LDL-C is now calcu lated using the Ewa n-Hop kins calcu annabelle n, which is a valid ated novel ireneo bradford resendez r accur acy than the Fried marcy equat ion in the estim ation of LDL-C . Ewa lucas SS et al. SIGRID. 2013; 310(1 9): 2061- 2068 (http ://ed ucati on.Qu Edin mccormick OwnerIQs. com/f aq/FA Q164) Not Available [address], [address], 08/24/2022 13:15:31 08/24/19 23 08/24/2022 LIPID PANEL WITH RATIO S chol/HDLC ratio 3.1 (calc ) <5.0 normal Not Available [address], [address], 08/24/2022 13:15:31 08/24/1908/24/2022 LIPID PANEL WITH RATIO S LDL/HDL ratio 1.8 (calc ) Below [place] ge Risk: <2.28 [place] ge Risk: 2.29- 4.90 Moder ate Risk: 4.91- 7.12 High Risk: >7.13 Not Available [address], [address], 08/24/2022 13:15:31 08/24/1908/24/2022 LIPID PANEL WITH RATIO S non HDL cholesterol 116 mg/dL _(marty c) <130 normal For patie nts with diabe sisi plus 1 major ASCVD risk facto r, treat ing to a non-H DL-C goal of <100 mg/dL (LDL- C of <70 mg/dL ) is consi dominikd a jenisea peadore c optio n. Not Available [address], [address], 08/24/2022 13:15:31 08/24/1908/24/2022 COMPR EHENS FLORESITA METAB OLIC PANEL glucose 72 mg/dL 65-99 normal Fasti ng refer ence inter beni Not Available [address], [address], 08/24/2022 13:15:32 08/24/19 23 08/24/2022 COMPR EHENS FLORESITA METAB OLIC PANEL urea nitrogen (BUN) 25 mg/dL 7-25 normal Not Available [address], [address], 08/24/2022 13:15:32 08/24/19 23 08/24/2022 COMPR EHENS FLORESITA METAB OLIC PANEL creatinine 0.82 mg/dL 0.70-1 .30 normal Not Available [address], [address], 08/24/2022 13:15:32 08/24/19 23 08/24/2022 COMPR EHENS FLORESITA METAB OLIC PANEL eGFR 103 mL/mi n/1.7 3m2 > or = 60 normal The eGFR is based on the CKD-E PI 2020 equat ion. To calcu late the new eGFR from a previ ous Creat inine or Cysta tin C resul t, go to https ://kayli gupta.manny love/mariel xiao s/ kdoqi /gfr% 5Fcal culat or Not Available [address], [address], 08/24/2022 13:15:32 08/24/19 23 08/24/2022 COMPR EHENS FLORESITA METAB OLIC PANEL BUN/creatini ne ratio NOT APPLIC ABLE (calc ) 6-22 Not Available [address], [address], 08/24/2022 13:15:32 08/24/19 23 08/24/2022 COMPR EHENS FLORESITA METAB OLIC PANEL sodium 137 mmol/ L 135-14 6 normal Not Available [address], [address], 08/24/2022 13:15:32 08/24/19 23 08/24/2022 COMPR EHENS FLORESITA METAB OLIC PANEL potassium 4.2 mmol/ L 3.5-5. 3 normal Not Available [address], [address], 08/24/2022 13:15:32 08/24/19 23 08/24/2022 COMPR EHENS FLORESITA METAB OLIC PANEL chloride 99 mmol/ L 98-110 normal Not Available [address], [address], 08/24/2022 13:15:32 08/24/19 23 08/24/2022 COMPR EHENS FLORESITA METAB OLIC PANEL carbon dioxide 30 mmol/ L 20-32 normal Not Available [address], [address], 08/24/2022 13:15:32 08/24/19 23 08/24/2022 COMPR EHENS FLORESITA METAB OLIC PANEL calcium 9.1 mg/dL 8.6-10 .3 normal Not Available [address], [address], 08/24/2022 13:15:32 08/24/19 23 08/24/2022 COMPR EHENS FLORESITA METAB OLIC PANEL protein, total 6.6 g/dL 6.1-8. 1 normal Not Available [address], [address], 08/24/2022 13:15:32 08/24/19 23 08/24/2022 COMPR EHENS FLORESITA METAB OLIC PANEL albumin 4.1 g/dL 3.6-5. 1 normal Not Available [address], [address], 08/24/2022 13:15:32 08/24/19 23 08/24/2022 COMPR EHENS FLORESITA METAB OLIC PANEL globulin 2.5 g/dL_ (calc ) 1.9-3. 7 normal Not Available [address], [address], 08/24/2022 13:15:32 08/24/19 23 08/24/2022 COMPR EHENS FLORESITA METAB OLIC PANEL albumin/glob ulin ratio 1.6 (calc ) 1.0-2. 5 normal Not Available [address] [address] [place], [address], 08/24/2022 13:15:32 08/24/19 23 08/24/2022 COMPR EHENS FLORESITA METAB OLIC PANEL bilirubin, total 0.6 mg/dL 0.2-1. 2 normal Not Available [address], [address], 08/24/2022 13:15:32 08/24/19 23 08/24/2022 COMPR EHENS FLORESITA METAB OLIC PANEL alkaline phosphatase 43 U/L 35-144 normal Not Available [facility] [employer] [address] [address] [place], [address], 08/24/2022 13:15:32 08/24/19 23 08/24/2022 COMPR EHENS FLORESITA METAB OLIC PANEL AST 20 U/L 10-35 normal Not Available [address], [address], 08/24/2022 13:15:32 08/24/19 23 08/24/2022 COMPR EHENS FLORESITA METAB OLIC PANEL ALT 17 U/L 9-46 normal Not Available [address], [address], 08/24/2022 13:15:32 08/24/19 23 08/24/2022 HEMOG LOBIN A1C hemoglobin A1C 7.8 %_of_ total _HGB <5.7 high For someo ne witho ut known diabe sisi, a hemog lobin A1c value of 6.5% or great er indic ates that they may have diabe sisi and this shoul d be confi rmed with a follo w-up test. For someo ne with known diabe sisi, a value <7% indic ates that their diabe sisi is well contr olled and a value great er than or equal to 7% indic ates subop timal contr ol. A1c targe ts shoul d be indiv idual ized based on durat ion of diabe sisi, age, comor bid condi tions , and other consi derat ions. Curre ntly, no conse nsus exist s alejandro virk use of hemog lobin A1c for diagn osis of diabe sisi for child emani. Not Available [address], [address], 08/24/2022 13:15:33 08/24/19 23 08/24/2022 CBC (INCL UDES DIFF/ PLT) white blood cell count 5.1 thous and/u L 3.8-10 .8 normal Not Available [facility] [address], [address], 08/24/2022 13:15:33 08/24/19 23 08/24/2022 CBC (INCL UDES DIFF/ PLT) red blood cell count 5.05 donato on/uL 4.20-5 .80 normal Not Available [address], [address], 08/24/2022 13:15:33 08/24/19 23 08/24/2022 CBC (INCL UDES DIFF/ PLT) hemoglobin 15.1 g/dL 13.2-1 7.1 normal Not Available [address], [address], 08/24/2022 13:15:33 08/24/19 23 08/24/2022 CBC (INCL UDES DIFF/ PLT) hematocrit 44.8 % 38.5-5 0.0 normal Not Available [facility] [address], [address], 08/24/2022 13:15:33 08/24/19 23 08/24/2022 CBC (INCL UDES DIFF/ PLT) MCV 88.7 fL 80.0-1 00.0 normal Not Available [employer] [address], [address], 08/24/2022 13:15:33 08/24/19 23 08/24/2022 CBC (INCL UDES DIFF/ PLT) MCH 29.9 pg 27.0-3 3.0 normal Not Available [address], [address], 08/24/2022 13:15:33 08/24/19 23 08/24/2022 CBC (INCL UDES DIFF/ PLT) MCHC 33.7 g/dL 32.0-3 6.0 normal Not Available [address], [address], 08/24/2022 13:15:33 08/24/19 23 08/24/2022 CBC (INCL UDES DIFF/ PLT) RDW 13.1 % 11.0-1 5.0 normal Not Available [address], [address], 08/24/2022 13:15:33 08/24/19 23 08/24/2022 CBC (INCL UDES DIFF/ PLT) platelet count 227 thous and/u L 140-40 0 normal Not Available [address], [address], 08/24/2022 13:15:33 08/24/19 23 08/24/2022 CBC (INCL UDES DIFF/ PLT) MPV 9.9 fL 7.5-12 .5 normal Not Available [address], [address], 08/24/2022 13:15:33 08/24/19 23 08/24/2022 CBC (INCL UDES DIFF/ PLT) absolute neutrophils 2310 cells /uL 1500-7 800 normal Not Available [address], [address], 08/24/2022 13:15:33 08/24/19 23 08/24/2022 CBC (INCL UDES DIFF/ PLT) absolute lymphocytes 2030 cells /uL 850-39 00 normal Not Available [address], [address], 08/24/2022 13:15:33 08/24/19 23 08/24/2022 CBC (INCL UDES DIFF/ PLT) absolute monocytes 587 cells /uL 200-95 0 normal Not Available [address], [address], 08/24/2022 13:15:33 08/24/19 23 08/24/2022 CBC (INCL UDES DIFF/ PLT) absolute eosinophils 133 cells /uL 15-500 normal Not Available [address], [address], 08/24/2022 13:15:33 08/24/19 23 08/24/2022 CBC (INCL UDES DIFF/ PLT) absolute basophils 41 cells /uL 0-200 normal Not Available [address], [address], 08/24/2022 13:15:33 08/24/19 23 08/24/2022 CBC (INCL UDES DIFF/ PLT) neutrophils 45.3 % normal Not Available [address], [address], 08/24/2022 13:15:33 08/24/19 23 08/24/2022 CBC (INCL UDES DIFF/ PLT) lymphocytes 39.8 % normal Not Available [address], [address], 08/24/2022 13:15:33 08/24/19 23 08/24/2022 CBC (INCL UDES DIFF/ PLT) monocytes 11.5 % normal Not Available [address], [address], 08/24/2022 13:15:33 08/24/19 23 08/24/2022 CBC (INCL UDES DIFF/ PLT) eosinophils 2.6 % normal Not Available [facility] [address], [address], 08/24/2022 13:15:33 08/24/19 23 08/24/2022 CBC (INCL UDES DIFF/ PLT) basophils 0.8 % normal Not Available [facility] [address], [address], 08/24/2022 13:15:33 08/24/19 23 08/24/2022 URINA LYSIS ,COMP LETE( REFL) color YELLOW yellow normal Not Available [facility] [address], [address], 08/24/2022 13:15:34 08/24/19 23 08/24/2022 URINA LYSIS ,COMP LETE( REFL) appearance CLEAR clear normal Not Available [facility] [address], [address], 08/24/2022 13:15:34 08/24/19 23 08/24/2022 URINA LYSIS ,COMP LETE( REFL) specific gravity 1.021 1.001- 1.035 normal Not Available [address], [address], 08/24/2022 13:15:34 08/24/19 23 08/24/2022 URINA LYSIS ,COMP LETE( REFL) pH 6.0 5.0-8. 0 normal Not Available [facility] [address], [address], 08/24/2022 13:15:34 08/24/19 23 08/24/2022 URINA LYSIS ,COMP LETE( REFL) glucose 3+ negati ve abnormal Not Available [facility] [address], [address], 08/24/2022 13:15:34 08/24/19 23 08/24/2022 URINA LYSIS ,COMP LETE( REFL) bilirubin NEGATI VE negati ve normal Not Available [address], [address], 08/24/2022 13:15:34 08/24/19 23 08/24/2022 URINA LYSIS ,COMP LETE( REFL) ketones NEGATI VE negati ve normal Not Available [address], [address], 08/24/2022 13:15:34 08/24/19 23 08/24/2022 URINA LYSIS ,COMP LETE( REFL) occult blood NEGATI VE negati ve normal Not Available [address], [address], 08/24/2022 13:15:34 08/24/19 23 08/24/2022 URINA LYSIS ,COMP LETE( REFL) protein NEGATI VE negati ve normal Not Available [address], [address], 08/24/2022 13:15:34 08/24/19 23 08/24/2022 URINA LYSIS ,COMP LETE( REFL) nitrite NEGATI VE negati ve normal Not Available [address], [address], 08/24/2022 13:15:34 08/24/19 23 08/24/2022 URINA LYSIS ,COMP LETE( REFL) leukocyte esterase NEGATI VE negati ve normal Not Available [address], [address], 08/24/2022 13:15:34 08/24/19 23 08/24/2022 URINA LYSIS ,COMP LETE( REFL) WBC NONE SEEN /hpf < or = 5 normal Not Available [address], [address], 08/24/2022 13:15:34 08/24/19 23 08/24/2022 URINA LYSIS ,COMP LETE( REFL) RBC NONE SEEN /hpf < or = 2 normal Not Available [address], [address], 08/24/2022 13:15:34 08/24/19 23 08/24/2022 URINA LYSIS ,COMP LETE( REFL) squamous epithelial cells NONE SEEN /hpf < or = 5 normal Not Available [address], [address], 08/24/2022 13:15:34 08/24/19 23 08/24/2022 URINA LYSIS ,COMP LETE( REFL) bacteria NONE SEEN /hpf none seen normal Not Available [address], [address], 08/24/2022 13:15:34 08/24/19 23 08/24/2022 URINA LYSIS ,COMP LETE( REFL) hyaline cast NONE SEEN /lpf none seen normal Not Available [address], [address], 08/24/2022 13:15:34 08/24/19 23 08/24/2022 PSA, TOTAL PSA, total 0.07 NG/mL < or = 4.00 normal The total PSA value from this assay syste m is stand ardiz ed again st the WHO stand darius. The test resul t will be appro ximat park 20% lower when lv red to the equim olar- stand ardiz ed total PSA (Centeno man Coult er). Lv rison of seria l PSA resul ts shoul d be inter prete d with this fact in mind. This test was perfo rmed using the Sieme ns chemi lumin escen t metho d. Value s obtai lety from diffe rent assay metho ds canno t be used inter nelson eably . PSA level s, regar dless of value , shoul d not be inter prete d as absol [place] evide nce of the prese nce or absen ce of disea se. Not Available [facility] [address], [address], 08/24/2022 13:15:35 02/13/20 23 02/13/2023 TSH+F REE T4 TSH 2.51 mIU/L 0.40-4 .50 normal Not Available [address], [address], 02/13/2023 07:07:22 02/13/20 23 02/13/2023 TSH+F REE T4 T4, free 1.1 NG/dL 0.8-1. 8 normal Not Available [address], [address], 02/13/2023 07:07:22 02/13/20 23 02/13/2023 COMPR EHENS FLORESITA METAB OLIC PANEL glucose 127 mg/dL 65-99 high Fasti ng refer ence inter beni For someo ne witho ut known diabe sisi, a gluco se value >125 mg/dL indic ates that they may have diabe sisi and this shoul d be confi rmed with a follo w-up test. Not Available [address], [address], 02/13/2023 07:07:23 02/13/20 23 02/13/2023 COMPR EHENS FLORESITA METAB OLIC PANEL urea nitrogen (BUN) 25 mg/dL 7-25 normal Not Available [address], [address], 02/13/2023 07:07:23 02/13/20 23 02/13/2023 COMPR EHENS FLORESITA METAB OLIC PANEL creatinine 0.78 mg/dL 0.70-1 .30 normal Not Available [address], [address], 02/13/2023 07:07:23 02/13/20 23 02/13/2023 COMPR EHENS FLORESITA METAB OLIC PANEL eGFR 104 mL/mi n/1.7 3m2 > or = 60 normal Not Available [address] [address] [place], [address], 02/13/2023 07:07:23 02/13/20 23 02/13/2023 COMPR EHENS FLORESITA METAB OLIC PANEL BUN/creatini ne ratio SEE NOTE: (calc ) 6-22 Not Repor elaine: BUN and Creat inine are withi n refer ence range . Not Available [address] [address] [place], [address], 02/13/2023 07:07:23 02/13/20 23 02/13/2023 COMPR EHENS FLORESITA METAB OLIC PANEL sodium 132 mmol/ L 135-14 6 low Not Available [address] [address] [place], [address], 02/13/2023 07:07:23 02/13/20 23 02/13/2023 COMPR EHENS FLORESITA METAB OLIC PANEL potassium 4.9 mmol/ L 3.5-5. 3 normal Not Available [address] [address] [place], [address], 02/13/2023 07:07:23 02/13/20 23 02/13/2023 COMPR EHENS FLORESITA METAB OLIC PANEL chloride 97 mmol/ L 98-110 low Not Available [address] [address] [place], [address], 02/13/2023 07:07:23 02/13/20 23 02/13/2023 COMPR EHENS FLORESITA METAB OLIC PANEL carbon dioxide 28 mmol/ L 20-32 normal Not Available [address] [address] [place], [address], 02/13/2023 07:07:23 02/13/20 23 02/13/2023 COMPR EHENS FLORESITA METAB OLIC PANEL calcium 9.2 mg/dL 8.6-10 .3 normal Not Available [address], [address], 02/13/2023 07:07:23 02/13/20 23 02/13/2023 COMPR EHENS FLORESITA METAB OLIC PANEL protein, total 6.7 g/dL 6.1-8. 1 normal Not Available [address], [address], 02/13/2023 07:07:23 02/13/20 23 02/13/2023 COMPR EHENS FLORESITA METAB OLIC PANEL albumin 4.2 g/dL 3.6-5. 1 normal Not Available [address], [address], 02/13/2023 07:07:23 02/13/20 23 02/13/2023 COMPR EHENS FLORESITA METAB OLIC PANEL globulin 2.5 g/dL_ (calc ) 1.9-3. 7 normal Not Available [address], [address], 02/13/2023 07:07:23 02/13/20 23 02/13/2023 COMPR EHENS FLORESITA METAB OLIC PANEL albumin/glob ulin ratio 1.7 (calc ) 1.0-2. 5 normal Not Available [address], [address], 02/13/2023 07:07:23 02/13/20 23 02/13/2023 COMPR EHENS FLORESITA METAB OLIC PANEL bilirubin, total 0.5 mg/dL 0.2-1. 2 normal Not Available [address] [place], [address], 02/13/2023 07:07:23 02/13/20 23 02/13/2023 COMPR EHENS FLORESITA METAB OLIC PANEL alkaline phosphatase 40 U/L 35-144 normal Not Available [address] [address] [place], [address], 02/13/2023 07:07:23 02/13/20 23 02/13/2023 COMPR EHENS FLORESITA METAB OLIC PANEL AST 19 U/L 10-35 normal Not Available [address] [address] [place], [address], 02/13/2023 07:07:23 02/13/20 23 02/13/2023 COMPR EHENS FLORESITA METAB OLIC PANEL ALT 17 U/L 9-46 normal Not Available [address] [address] [place], [address], 02/13/2023 07:07:23 02/13/20 23 02/13/2023 HEMOG LOBIN A1C hemoglobin A1C 7.1 %_of_ total _HGB <5.7 high For someo ne witho ut known diabe sisi, a hemog lobin A1c value of 6.5% or great er indic ates that they may have diabe sisi and this shoul d be confi rmed with a follo w-up test. For someo ne with known diabe issi, a value <7% indic ates that their diabe sisi is well contr olled and a value great er than or equal to 7% indic ates subop timal contr ol. A1c targe ts shoul d be indiv idual ized based on durat ion of diabe sisi, age, comor bid condi tions , and other consi derat ions. Curre ntly, no conse nsus exist s alejandro virk use of hemog lobin A1c for diagn osis of diabe sisi for child emani. Not Available [address] [address] [place], [address], 02/13/2023 07:07:23 10/17/19 24 10/18/2023 ALBUM IN, RANDO M URINE W/CRE ATINI NE creatinine, random urine 10 mg/dL 20-320 low Not Available [facility] [address] [place], [address], 10/18/2023 16:19:35 10/17/19 24 10/18/2023 ALBUM IN, RANDO M URINE W/CRE ATINI NE albumin, urine <0.2 mg/dL see note: normal Refer ence Range : Refer ence Range Not estab lishe d Not Available [address], [address], 10/18/2023 16:19:35 10/17/19 24 10/18/2023 ALBUM IN, RANDO M URINE W/CRE ATINI NE albumin/crea tinine ratio, random urine NOTE mg/g_ creat <30 normal NOTE: The urine album in value is less than 0.2 mg/dL there fore we are unabl e to calcu late excre tion and/o r creat inine ratio . The ADA defin es abnor malit ies in album in excre tion as follo ws: Album inuri a Categ ory Resul t (mg/g creat inine ) Mya l to Mildl y incre ased <30 Moder ately incre ased 30-29 9 [address] incre ased > OR = 300 The ADA recom mends that at least two of three speci mens colle cted withi n a 3-6 month perio d be abnor mal befor e consi uri g a patie nt to be withi n a diagn ostic categ ory. Not Available [address], [address], 10/18/2023 16:19:35 10/17/19 24 10/18/2023 TSH+F REE T4 TSH 1.27 mIU/L 0.40-4 .50 normal Not Available [facility] [address] [place], [address], 10/18/2023 16:19:35 10/17/19 24 10/18/2023 TSH+F REE T4 T4, free 1.3 NG/dL 0.8-1. 8 normal Not Available [address], [address], 10/18/2023 16:19:35 10/17/19 24 10/18/2023 LIPID PANEL WITH RATIO S cholesterol, total 165 mg/dL <200 normal Not Available [facility] [address] [place], [address], 10/18/2023 16:19:36 10/17/19 24 10/18/2023 LIPID PANEL WITH RATIO S HDL cholesterol 46 mg/dL > or = 40 normal Not Available [facility] [address] [place], [address], 10/18/2023 16:19:36 10/17/19 24 10/18/2023 LIPID PANEL WITH RATIO S triglyceride s 115 mg/dL <150 normal Not Available [facility] [address] [address] [place], [address], 10/18/2023 16:19:36 10/17/19 24 10/18/2023 LIPID PANEL WITH RATIO S LDL-choleste rol 98 mg/dL _(marty c) normal Refer ence range : <100 [place] able range <100 mg/dL for prima ry preve ntion ; <70 mg/dL for patie nts with CHD or diabe tic patie nts with > or = 2 CHD risk facto rs. LDL-C is now calcu lated using the [place] [employer] [employer] fatemehu annabelle n, which is a valid ated novel dave jno accur acy than the [employer] equat ion in the estim ation of LDL-C . Ewa lucas SS et al. SIGRID. 2013; 310(1 9): 2061- 2068 (http ://ed ucati on.Qu Edin mccormick OwnerIQs. com/f aq/FA Q164) Not Available [facility] [address] [place], [address], 10/18/2023 16:19:36 10/17/19 24 10/18/2023 LIPID PANEL WITH RATIO S chol/HDLC ratio 3.6 (calc ) <5.0 normal Not Available [facility] [address] [place], [address], 10/18/2023 16:19:36 07/25/20 24 10/18/2023 LIPID PANEL WITH RATIO S LDL/HDL ratio 2.1 (calc ) Below [place] ge Risk: <2.28 [place] ge Risk: 2.29- 4.90 Moder ate Risk: 4.91- 7.12 High Risk: >7.13 Not Available [address] [address] [place], [address], 10/18/2023 16:19:36 10/17/19 24 10/18/2023 LIPID PANEL WITH RATIO S non HDL cholesterol 119 mg/dL _(marty c) <130 normal For patie nts with diabe sisi plus 1 major ASCVD risk facto r, treat ing to a non-H DL-C goal of <100 mg/dL (LDL- C of <70 mg/dL ) is tacos lyle peuti c optio n. Not Available [address] [address] [place], [address], 10/18/2023 16:19:36 10/17/19 24 10/18/2023 COMPR EHENS FLORESITA METAB OLIC PANEL glucose 75 mg/dL 65-139 normal Non-f astin g refer ence inter beni Not Available [address] [address] [place], [address], 10/18/2023 16:19:36 10/17/19 24 10/18/2023 COMPR EHENS FLORESITA METAB OLIC PANEL urea nitrogen (BUN) 20 mg/dL 7-25 normal Not Available [address] [address] [place], [address], 10/18/2023 16:19:36 10/17/19 24 10/18/2023 COMPR EHENS FLORESITA METAB OLIC PANEL creatinine 0.72 mg/dL 0.70-1 .30 normal Not Available [address] [address] [place], [address], 10/18/2023 16:19:36 10/17/19 24 10/18/2023 COMPR EHENS FLORESITA METAB OLIC PANEL eGFR 107 mL/mi n/1.7 3m2 > or = 60 normal Not Available [address], [address], 10/18/2023 16:19:36 10/17/19 24 10/18/2023 COMPR EHENS FLORESITA METAB OLIC PANEL BUN/creatini ne ratio SEE NOTE: (calc ) 6-22 Not Repor elaine: BUN and Creat inine are withi n refer ence range . Not Available [address], [address], 10/18/2023 16:19:36 10/17/19 24 10/18/2023 COMPR EHENS FLORESITA METAB OLIC PANEL sodium 137 mmol/ L 135-14 6 normal Not Available [address], [address], 10/18/2023 16:19:36 10/17/19 24 10/18/2023 COMPR EHENS FLORESITA METAB OLIC PANEL potassium 4.7 mmol/ L 3.5-5. 3 normal Not Available [address], [address], 10/18/2023 16:19:36 10/17/19 24 10/18/2023 COMPR EHENS FLORESITA METAB OLIC PANEL chloride 100 mmol/ L 98-110 normal Not Available [address], [address], 10/18/2023 16:19:36 10/17/19 24 10/18/2023 COMPR EHENS FLORESITA METAB OLIC PANEL carbon dioxide 29 mmol/ L 20-32 normal Not Available [address], [address], 10/18/2023 16:19:36 10/17/19 24 10/18/2023 COMPR EHENS FLORESITA METAB OLIC PANEL calcium 9.4 mg/dL 8.6-10 .3 normal Not Available [address], [address], 10/18/2023 16:19:36 10/17/19 24 10/18/2023 COMPR EHENS FLORESITA METAB OLIC PANEL protein, total 6.4 g/dL 6.1-8. 1 normal Not Available [address], [address], 10/18/2023 16:19:36 10/17/19 24 10/18/2023 COMPR EHENS FLORESITA METAB OLIC PANEL albumin 4.2 g/dL 3.6-5. 1 normal Not Available [address], [address], 10/18/2023 16:19:36 10/17/19 24 10/18/2023 COMPR EHENS FLORESITA METAB OLIC PANEL globulin 2.2 g/dL_ (calc ) 1.9-3. 7 normal Not Available [address], [address], 10/18/2023 16:19:36 10/17/19 24 10/18/2023 COMPR EHENS FLORESITA METAB OLIC PANEL albumin/glob ulin ratio 1.9 (calc ) 1.0-2. 5 normal Not Available [address], [address], 10/18/2023 16:19:36 10/17/19 24 10/18/2023 COMPR EHENS FLORESITA METAB OLIC PANEL bilirubin, total 0.4 mg/dL 0.2-1. 2 normal Not Available [address], [address], 10/18/2023 16:19:36 10/17/19 24 10/18/2023 COMPR EHENS FLORESITA METAB OLIC PANEL alkaline phosphatase 42 U/L 35-144 normal Not Available [address], [address], 10/18/2023 16:19:36 10/17/19 24 10/18/2023 COMPR EHENS FLORESITA METAB OLIC PANEL AST 22 U/L 10-35 normal Not Available [facility] [address] [place], [address], 10/18/2023 16:19:36 10/17/19 24 10/18/2023 COMPR EHENS FLORESITA METAB OLIC PANEL ALT 21 U/L 9-46 normal Not Available [facility] [address] [place], [address], 10/18/2023 16:19:36 10/17/19 24 10/18/2023 HEMOG LOBIN A1C hemoglobin A1C 7.3 %_of_ total _HGB <5.7 high For someo ne witho ut known diabe sisi, a hemog lobin A1c value of 6.5% or great er indic ates that they may have diabe sisi and this shoul d be confi rmed with a follo w-up test. For someo ne with known diabe sisi, a value <7% indic ates that their diabe sisi is well contr olled and a value great er than or equal to 7% indic ates subop timal contr ol. A1c targe ts shoul d be indiv idual ized based on durat ion of diabe sisi, age, comor bid condi tions , and other consi derat ions. Curre ntly, no conse nsus exist s alejandro virk use of hemog lobin A1c for diagn osis of diabe sisi for child emani. This test was perfo rmed on the [facility] donya c503 platf orm. Effec tive , a nelson e in test platf orms from the [employer] t[employer] to the [facility] donya c503 may have shift ed HbA1c resul ts lv red to histo rical resul ts. Based on labor atory valid ation testi ng condu cted at [employer] , the [facility] platf orm relat floresita to the [employer] platf orm had an avera ge incre ase in HbA1c value of < or = 0.3%. This diffe rence is withi n accep elaine varia bilit y estab lishe d by [facility] hemog lobin Stand gen bernardo Progr am. Note that not all indiv idual s will have had a shift in their resul ts and direc t lv rison s betwe en histo rical and curre nt resul ts for testi ng condu cted on diffe rent platf orms is not recom niranjan d. Not Available [address] [address] [place], [address], 10/18/2023 16:19:37 10/17/19 24 10/18/2023 CBC (INCL UDES DIFF/ PLT) white blood cell count 6.9 thous and/u L 3.8-10 .8 normal Not Available [facility] [address] [address] [place], [address], 10/18/2023 16:19:37 10/17/19 24 10/18/2023 CBC (INCL UDES DIFF/ PLT) red blood cell count 4.81 donato on/uL 4.20-5 .80 normal Not Available [facility] [address] [address] [place], [address], 10/18/2023 16:19:37 10/17/19 24 10/18/2023 CBC (INCL UDES DIFF/ PLT) hemoglobin 15.3 g/dL 13.2-1 7.1 normal Not Available [facility] [address], [address], 10/18/2023 16:19:37 10/17/19 24 10/18/2023 CBC (INCL UDES DIFF/ PLT) hematocrit 46.9 % 38.5-5 0.0 normal Not Available [facility] [address], [address], 10/18/2023 16:19:37 10/17/19 24 10/18/2023 CBC (INCL UDES DIFF/ PLT) MCV 97.5 fL 80.0-1 00.0 normal Not Available [address], [address], 10/18/2023 16:19:37 10/17/19 24 10/18/2023 CBC (INCL UDES DIFF/ PLT) MCH 31.8 pg 27.0-3 3.0 normal Not Available [address], [address], 10/18/2023 16:19:37 10/17/19 24 10/18/2023 CBC (INCL UDES DIFF/ PLT) MCHC 32.6 g/dL 32.0-3 6.0 normal Not Available [address], [address], 10/18/2023 16:19:37 10/17/19 24 10/18/2023 CBC (INCL UDES DIFF/ PLT) RDW 14.0 % 11.0-1 5.0 normal Not Available [address], [address], 10/18/2023 16:19:37 10/17/19 24 10/18/2023 CBC (INCL UDES DIFF/ PLT) platelet count 252 thous and/u L 140-40 0 normal Not Available [address], [address], 10/18/2023 16:19:37 10/17/19 24 10/18/2023 CBC (INCL UDES DIFF/ PLT) MPV 10.5 fL 7.5-12 .5 normal Not Available [address], [address], 10/18/2023 16:19:37 10/17/19 24 10/18/2023 CBC (INCL UDES DIFF/ PLT) absolute neutrophils 3926 cells /uL 1500-7 800 normal Not Available [address], [address], 10/18/2023 16:19:37 10/17/19 24 10/18/2023 CBC (INCL UDES DIFF/ PLT) absolute lymphocytes 2194 cells /uL 850-39 00 normal Not Available [address], [address], 10/18/2023 16:19:37 10/17/19 24 10/18/2023 CBC (INCL UDES DIFF/ PLT) absolute monocytes 573 cells /uL 200-95 0 normal Not Available [address], [address], 10/18/2023 16:19:37 10/17/19 24 10/18/2023 CBC (INCL UDES DIFF/ PLT) absolute eosinophils 159 cells /uL 15-500 normal Not Available [address], [address], 10/18/2023 16:19:37 10/17/19 24 10/18/2023 CBC (INCL UDES DIFF/ PLT) absolute basophils 48 cells /uL 0-200 normal Not Available [address], [address], 10/18/2023 16:19:37 10/17/19 24 10/18/2023 CBC (INCL UDES DIFF/ PLT) neutrophils 56.9 % normal Not Available [address], [address], 10/18/2023 16:19:37 10/17/19 24 10/18/2023 CBC (INCL UDES DIFF/ PLT) lymphocytes 31.8 % normal Not Available [address], [address], 10/18/2023 16:19:37 10/17/19 24 10/18/2023 CBC (INCL UDES DIFF/ PLT) monocytes 8.3 % normal Not Available [address], [address], 10/18/2023 16:19:37 10/17/19 24 10/18/2023 CBC (INCL UDES DIFF/ PLT) eosinophils 2.3 % normal Not Available [address], [address], 10/18/2023 16:19:37 10/17/19 24 10/18/2023 CBC (INCL UDES DIFF/ PLT) basophils 0.7 % normal Not Available [address], [address], 10/18/2023 16:19:37 10/17/19 24 10/18/2023 URINA LYSIS REFLE X color YELLOW yellow normal Not Available [address], [address], 10/18/2023 16:19:38 10/17/19 24 10/18/2023 URINA LYSIS REFLE X appearance CLEAR clear normal Not Available [address], [address], 10/18/2023 16:19:38 10/17/19 24 10/18/2023 URINA LYSIS REFLE X specific gravity 1.004 1.001- 1.035 normal Not Available [address], [address], 10/18/2023 16:19:38 10/17/19 24 10/18/2023 URINA LYSIS REFLE X pH 7.0 5.0-8. 0 normal Not Available [address], [address], 10/18/2023 16:19:38 10/17/19 24 10/18/2023 URINA LYSIS REFLE X glucose 1+ negati ve abnormal Not Available [address], [address], 10/18/2023 16:19:38 10/17/19 24 10/18/2023 URINA LYSIS REFLE X bilirubin NEGATI VE negati ve normal Not Available [address], [address], 10/18/2023 16:19:38 10/17/19 24 10/18/2023 URINA LYSIS REFLE X ketones NEGATI VE negati ve normal Not Available [address], [address], 10/18/2023 16:19:38 10/17/19 24 10/18/2023 URINA LYSIS REFLE X occult blood NEGATI VE negati ve normal Not Available [address], [address], 10/18/2023 16:19:38 10/17/19 24 10/18/2023 URINA LYSIS REFLE X protein NEGATI VE negati ve normal Not Available [address], [address], 10/18/2023 16:19:38 10/17/19 24 10/18/2023 URINA LYSIS REFLE X nitrite NEGATI VE negati ve normal Not Available [address], [address], 10/18/2023 16:19:38 10/17/19 24 10/18/2023 URINA LYSIS REFLE X leukocyte esterase NEGATI VE negati ve normal Not Available [address], [address], 10/18/2023 16:19:38 10/17/19 24 10/18/2023 VITAM IN B12/F OLATE , SERUM PANEL vitamin B12 452 pg/mL 200-11 00 normal Not Available [address], [address], 10/18/2023 16:19:38 10/17/19 24 10/18/2023 VITAM IN B12/F OLATE , SERUM PANEL folate, serum >24.0 NG/mL normal Refer ence Range Low: <3.4 Borde rline : 3.4-5 .4 Mya l: >5.4 Not Available [employer] [facility] [address] [place], [address], 10/18/2023 16:19:38 10/17/1910/18/2023 PSA, TOTAL PSA, total 0.09 NG/mL < or = 4.00 normal The total PSA value from this assay syste m is stand ardiz ed again st the WHO stand darius. The test resul t will be appro ximat park 20% lower when lv red to the equim olar- stand ardiz ed total PSA (Cent[facility] man Coult er). Lv rison of seria l PSA resul ts shoul d be inter prete d with this fact in mind. This test was perfo rmed using the Sieme ns chemi lumin escen t metho d. Value s obtai lety from diffe rent assay metho ds canno t be used inter nelson eably . PSA level s, regar dless of value , shoul d not be inter prete d as absol [place] evide nce of the prese nce or absen ce of disea se. Not Available [employer] [facility] [address] [place], [address], 10/18/2023 16:19:38 06/15/19 23 04/19/2022 XR, hand No observ ation record ed. [email or web address] [facility] [address], [place], [address], 06/15/2022 15:59:57 Result Notes None recorded. Problems Name Problem SNOMED Code Status Onset Date Resolution Date Notes Provider Name and Address Organization Details Recorded Time Benign essential hypertension 7965326 Active 2021 Not Available [facility] 3 22:44:17 Hypertensive disorder 99017209 Active 2021 Not Available [facility] 3 22:44:17 Hypothyroidis m 26400579 Active 2021 Not Available [employer] 3 22:44:17 Uncontrolled type 2 diabetes mellitus 900241571 Active 2021 Not Available [facility] 3 22:44:17 Diabetes mellitus 66118832 Active 2021 Not Available [facility] 3 22:44:17 Acute sinusitis 62532830 Active [address] [place] [address] [facility], [facility] [address], [place], [address] , [facility] [employer] [facility] [employer] [facility] 3 14:55:54 Erectile dysfunction 916726992 Active [address] [place] [address] [facility], [facility] [address], [place], [address] , [employer] [facility] [employer] [facility] 3 12:04:35 Problem Notes None recorded. Procedures Surgical History None recorded. Imaging Results Imaging Date Name Status LastModified by Organiz ation Details LastModified Time 04/19/2022 XR, hand completed [email or web address] [facility] [address] [facility] [address], [place], [address], 06/15/2022 15:59:57 Procedure Notes None recorded. Medical Equipment None Reported. Allergies No known drug allergies Medications Name Sig Start Date Stop Date Status Note LastModified by Organization Details LastModified Time pioglitazon e 15 mg tablet TAKE 1 TABLET BY MOUTH DAILY 2023 active Not Available Not Available Not Avai lable metformin 500 mg tablet TAKE 2 TABLETS BY MOUTH TWICE DAILY WITH MEALS 2023 active Not Available Not Available Not Avai lable valacyclovi r 1 gram tablet active Not Available Not Available Not Available meloxicam 15 mg tablet active Not Available Not Available Not Available prednisone 20 mg tablet 02/14 completed Not Available Not Available Not Available methotrexat e sodium 2.5 mg tablet Take 6 tablets every week by oral route for 84 days. active Not Available Not Available No t Available levothyroxi ne 125 mcg tablet Take 1 tablet every day by oral route. active Not Available Not Available No t Available glimepiride 4 mg tablet TAKE 1 TABLET BY MOUTH TWICE DAILY active Not Available Not Available No t Available folic acid 1 mg tablet Take 1 tablet every day by oral route for 90 days. active Not Available Not Available No t Available losartan 100 mg tablet TAKE 1 TABLET BY MOUTH EVERY DAY 2023 active Not Available Not Available Not Avai lable amoxicillin 875 mg-potassiu m clavulanate 125 mg tablet TAKE 1 TABLET BY MOUTH EVERY 12 HOURS 10/11 completed Not Available Not Available Not Available Novolog FlexPen U-100 Insulin aspart 100 unit/mL (3 mL) subcutaneou s INJECT 12 UNITS UNDER THE SKIN PER SLIDING SCALE NEEDED 05/03 completed Not Available Not Available Not Available vardenafil 20 mg tablet Take 1 tablet every day by oral route. 03/15 completed Not Available Not Available Not Available tadalafil 20 mg tablet Take 1 tablet every day by oral route as needed. 2022 active Not Available Not Available Not Avai lable varenicline tartrate 1 mg tablet TAKE 1 TABLET BY MOUTH TWICE DAILY 10/12 completed Not Available Not Available Not Available varenicline tartrate 0.5 mg (11)-1 mg (42) tablets in a dose pack USE DIRECTED 10/12 completed Not Available Not Available Not Available Humalog KwikPen (U-100) Insulin 100 unit/mL subcutaneou s INJECT 12 UNITS SUBCUTANE OUSLY 3 TIMES DAILY NEEDED PER SLIDING SCALE active Not Available Not Available No t Available Easy Touch 31 gauge x 3/16 needle USE TO INJECT FOUR TIMES DAILY active Not Available Not Available No t Available Jardiance 25 mg tablet TAKE 1 TABLET BY MOUTH DAILY 2023 active Not Available Not Available Not Avai labkacie Tresiba FlexTouch U-100 insulin 100 unit/mL (3 mL) subcutaneou s pen ADMINISTE R 35 UNITS UNDER THE SKIN EVERY NIGHT AT BEDTIME active Not Available Not Available No t Available FreeStyle Mary 2 Sensor kit USE DIRECTED. CHANGE SENSOR EVERY 14 DAYS active Not Available Not Available No t Available Paxlovid 300 mg (150 mg x 2)-100 mg tablets in a dose pack DIRECTED 02/14 completed Not Available Not Available Not Available Vitals Date Recorded Body mass index (BMI) Body height Oxygen saturation Oxygen saturation in Arterial blood by Pulse oximetry Heart rate Body temperature Body weight Systolic blood pressure Diastolic blood pressure Provider Name and Address Organization Details Last Updated DateTime 2 31 kg/m2 185.42 cm 83 % 83 % 92 /min 97.8 [degF] 239396. 21 g 140 mm[Hg] 96 mm[Hg] Not Available [employer] 3 22:44:04 Date Recorded Body height Body temperature Body mass index (BMI) Body weight Heart rate Oxygen saturation Oxygen saturation in Arterial blood by Pulse oximetry Systolic blood pressure Diastolic blood pressure Provider Name and Address Organization Details Last Updated DateTime 3 185.42 cm 97.8 [degF] 32.6 kg/m2 994659. 32 g 78 /min 98 % 98 % 124 mm[Hg] 86 mm[Hg] Preeti Lawton RN [facility] [employer] 3 10:41:01 Date Recorded Body height Body mass index (BMI) Body weight Respiratory rate Oxygen saturation Oxygen saturation in Arterial blood by Pulse oximetry Heart rate Systolic blood pressure Diastolic blood pressure Provider Name and Address Organization Details Last Updated DateTime 3 185.42 cm 34.2 kg/m2 564427. 22 g 16 /min 97 % 97 % 59 /min 140 mm[Hg] 82 mm[Hg] SHEEBA Salgado [employer] 3 08:29:55 Date Recorded Body height Body temperature Body mass index (BMI) Body weight Respiratory rate Oxygen saturation Oxygen saturation in Arterial blood by Pulse oximetry Heart rate Systolic blood pressure Diastolic blood pressure Provider Name and Address Organization Details Last Updated DateTime 3 185.42 cm 97.3 [degF] 35.1 kg/m2 299629. 57 g 16 /min 96 % 96 % 69 /min 118 mm[Hg] 78 mm[Hg] SHEEBA Salgado [employer] 3 11:30:45 Social History Question Answer Notes LastModified by Organizat ion Details LastModified Time Tobacco Smoking Status Former Smoker SHEEBA Salgado [facility] [employer] 10/12/2022 08:31:02 Do You Have An Advance Directive? No [id number] Information not available 05/23/2022 What Is Your Level Of Alcohol Consumption? Occasional [id number].[id number] Information not available 05/23/2022 What Is Your Level Of Caffeine Consumption? Moderate [id number].[id number] Information not available 05/23/2022 In The 14 Days Before Symptom Onset, Have You Had Close Contact With A Laboratory-confir med COVID-19 While That Case Was Ill? No [id number] Information not available 05/23/2022 In The 14 Days Before Symptom Onset, Have You Had Close Contact With A Person Who Is Under Investigation For COVID-19 While That Person Was Ill? No [id number] Information not available 05/23/2022 Are You Currently Employed? Yes [email or web address] Information not available 06/08/2022 What Type Of Diet Are You Following? 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 No [id number] Information not available 05/23/2022 When Did You Quit Smoking? 1-5yearssincel astcigarette 2022 [email or web address] Information not available 10/12/2022 Do You Use Insect Repellent Routinely? Yes [id number] Information not available 05/23/2022 Do You Have A Medical Power Of [place]er? No MIGRATION.[id number] 2424 Information not available 05/23/2022 Do You Have Any Pets? Yes [id number].[id number] 4018 Information not available 05/23/2022 What Is Your Relationship Status? MIGRATION.[id number] Information not available 05/23/2022 Do You Use Your Seat Belt Or Car Seat Routinely? Yes [email or web address] Information not available 06/08/2022 Do You Have Smoke And Carbon Monoxide Detectors In Your Home? Yes MIGRATION.[id number] Information not available 05/23/2022 At What Age Did You Start Smoking Tobacco? 36 MIGRATION.[id number] 5443 Information not available 05/23/2022 How Much Tobacco Do You Smoke? 1 PPW MIGRATION.739841 8133 Information not available 05/23/2022 Do You Feel Stressed (tense, Restless, Nervous, Or Anxious, Or Unable To Sleep At Night)? [id number] MIGRATION.956404 2045 Information not available 05/23/2022 Do You Use Any Illicit Or Recreational Drugs? No MIGRATION.[id number] 3698 Information not available 05/23/2022 Do You Use Sunscreen Routinely? Yes MIGRATION.[id number] 5083 Information not available 05/23/2022 Have You Recently Traveled Abroad? No MIGRATION.[id number] 6494 Information not available 05/23/2022 Do You Have Any Dietary Restrictions? No MIGRATION.[id number] 5582 Information not available 05/23/2022 Sex: Unknown Functional Status Question Answer Note LastModified by Organizat ion Details LastModified Time What is your exercise level? Occasional [id number] Information not available 05/23/2022 Mental Status None recorded. Family History Relationship Description Onset Age of this Age Resolved Age Notes LastModified by Organization Details LastModified Time Father General health good [email or web address] Not available 11:37:58 Medical History No medical history recorded. Past Encounters Encounter ID Performer Location Encounter Start Date Encounter Closed Date Diagnosis/Indication Diagnosis SNOMED-CT Code Diagnosis ICD10 Code Diagnosis Note [id number] [facility] Internal Med Branch [address] [place] [address] 02/19/2022 00:00:00 02/19/2022 19:20:07 [id number] [place] [facility] Internal Med Branch [address] [place] [address] 06/11/2022 10:34:38 06/11/2022 11:15:02 Uncontrolled type 2 diabetes mellitus 028166161 E11.65 on multiple agents. due for A1c and microalbum in Benign ess ential hypertension 9555863 I10 stable on losartan Hypothyroidism 13325217 E03.9 screening TFTs due. on supplement . Cholesterol screening 27 8101982 Z13.220 fasting lipids due Screening for malignant neoplasm of prostate 341434578 Z12.5 PSA due Long-term drug therapy 605282959 Z79.899 routine labs are all due Diabetic on insulin 1707 58454 Z79.4 noted Tobacco user 238943534 Z 72.0 Start chantix titration as directed [id number] [facility] Internal Med Branch [address] [place] [address] 10/12/2022 08:17:58 10/12/2022 08:56:20 Uncontrolled type 2 diabetes mellitus 477589570 E11.65 7.8% a1c. on multiple agents including insulin. His diet has been poor. Tresiba can be titrated by patient to get readings in goal range. Benign ess ential hypertension 2497337 I10 stable on losartan 100mg daily. Hypothyroidism 09053704 E03.9 on supplement . repeat TFTs in feb. Long-term drug therapy 232968056 Z79.899 cmp due in dec labs Diabetic on insulin 1707 [address]1458 Z79.4 noted [id number] [place] [facility] Branch [address] [place] [address] 03/15/2023 11:25:33 03/15/2023 12:09:14 Uncontrolled type 2 diabetes mellitus 438106165 E11.65 a1c 7.1%. improving. stable on medication s. Benign ess ential hypertension 2668980 I10 stable on losartan 100mg daily. Hypothyroidism 25661588 E03.9 on supplement . TFT labs are in range Long-term drug therapy 603500417 Z79.899 labs are UTD and due again in spring. Diabetic on insulin 1707 64361 Z79.4 noted Erectile dysfunction 860 584587 F52.21 trial of tadalafil 20mg daily PRN Health Concerns Section Related Observation LastModified by Organization Detai ls LastModified Time None Recorded Concern Status LastModified by Organization Details LastModified Time None Recorded Advance Directives Directive N: Payers Encounter Date Sequence Insurance Name Policy Number Policy [place] Covered Member ID [place] Member ID Guarantor Name 06/11/2022 1 [place] [id number] Jabire Joiner [id number] Jabier Joiner 10/12/2022 1 [place] [id number] Jabier Joiner [id number] Jabier Joiner 03/15/2023 1 [place] [id number] Jabier Joiner [id number] Jabier Joiner Notes Date Note Type Note Provider Name and Address Organization Details Recorded Time 022 text/ht ml DiabetesReported bypatient.Control:usually well controlled; improved since last visit; normal range of home blood sugars (in the low 100s) Compliance:compliant with medications; compliant with follow-up visits; compliant with diet; compliant with home glucose monitoring Self Care:monitoring glucose Context:seeing eye doctor regularly; checking feet regularly Associated Symptoms:no weight gain; no weight loss; no dizziness; no sweats; no headaches; no confusion; no increased thirst; no increased appetite; no increased urination; no blurred vision; no numbness of feet; no calluses on feet; no fatigue; no blurred vision; no paresthesiasHypertensionReported bypatient.Onset/Timing:better Self Care:not under emotional stress Associated Symptoms:no shortness of breath; no fatigue; no palpitations; no decline in exercise capacity; no snoringHypothyroidismReported bypatient.Onset/Timing:better Context/Risk:normal thyroid levels; no history of head or neck radiation during childhood; no history of thyroid disease; no history of hypothyroidism; no history of hyperthyroidism; no excess iron exposure Exercisegets exercise Associated Symptoms:no cold intolerance; no heat intolerance; no weight loss; no weight gain; no double vision; no dry eyes; no hoarseness; no difficulty swallowing; no neck masses; no deepening of the voice; no fast heart rate; no increased blood pressure; no palpitations; no chest pain; no chest tightess or pressure; no constipation; no diarrhea; no vomiting; no decreased appetite; no loose stools; no irregular menstrual periods; no excessive sweating; no joint pain; no numbness; no tingling of the hands or feet; no dry skin; no tremor; no nervousness; no anxiety; no depression; no fatigue; no sleep difficulties; no skin changes; no hair changes Not Available [facility] [employer] [facility] 02/19/2022 19:20:07 023 text/ht ml DiabetesReported bypatient.Control:usually well controlled; improved since last visit Compliance:compliant with medications; compliant with follow-up visits; compliant with diet; compliant with home glucose monitoring; had eye doctor visit in last year; had dietitian visit in last year; wears a medic alert bracelet or necklace; rapid-acting carbohydrate kept in car Self Care:monitoring glucose Context:normal range of home blood sugars (in the low 100s); seeing eye doctor regularly; checking feet regularly Associated Symptoms:no weight gain; no weight loss; no dizziness; no sweats; no headaches; no confusion; no increased thirst; no increased appetite; no increased urination; no blurred vision; no numbness of feet; no calluses on feet; no coronary artery disease; no kidney disease; no peripheral vascular disease; no diabetic retinopathy; no diabetic neuropathyHypertensionReported bypatient.Onset/Timing:better Associated Symptoms:no shortness of breath; no fatigue; no palpitations; no decline in exercise capacity; no snoringHypothyroidismReported bypatient.Onset/Timing:better Context/Risk:normal thyroid levels; no history of head or neck radiation during childhood; no history of thyroid disease; no history of hypothyroidism; no history of hyperthyroidism; no excess iron exposure Exercisegets exercise Associated Symptoms:no cold intolerance; no heat intolerance; no weight loss; no weight gain; no double vision; no dry eyes; no hoarseness; no difficulty swallowing; no neck masses; no deepening of the voice; no fast heart rate; no increased blood pressure; no palpitations; no chest pain; no chest tightess or pressure; no constipation; no diarrhea; no vomiting; no decreased appetite; no loose stools; no irregular menstrual periods; no excessive sweating; no joint pain; no numbness; no tingling of the hands or feet; no dry skin; no tremor; no nervousness; no anxiety; no depression; no fatigue; no sleep difficulties; no skin changes; no hair changes MAG [place] [address] [place] [address], [facility] [address], [place], [address], [place] [facility] 06/22/2022 11:43:35 023 text/ht ml DiabetesReported bypatient.Control:usually well controlled; improved since last visit Compliance:compliant with medications; compliant with follow-up visits; compliant with diet; compliant with home glucose monitoring; had eye doctor visit in last year; had dietitian visit in last year; wears a medic alert bracelet or necklace; rapid-acting carbohydrate kept in car Self Care:monitoring glucose Context:normal range of home blood sugars (in the low 100s); seeing eye doctor regularly; checking feet regularly Associated Symptoms:no weight gain; no weight loss; no dizziness; no sweats; no headaches; no confusion; no increased thirst; no increased appetite; no increased urination; no blurred vision; no numbness of feet; no calluses on feet; no coronary artery disease; no kidney disease; no peripheral vascular disease; no diabetic retinopathy; no diabetic neuropathyGeneric HPI TemplateReported bypatient.Notes:Pt is here to f/u on his labs. They are in review to you.HypertensionReported bypatient.Onset/Timing:better Associated Symptoms:no shortness of breath; no fatigue; no palpitations; no decline in exercise capacity; no snoringHypothyroidismReported bypatient.Onset/Timing:better Context/Risk:normal thyroid levels; no history of head or neck radiation during childhood; no history of thyroid disease; no history of hypothyroidism; no history of hyperthyroidism; no excess iron exposure Exercisegets exercise Associated Symptoms:no cold intolerance; no heat intolerance; no weight loss; no weight gain; no double vision; no dry eyes; no hoarseness; no difficulty swallowing; no neck masses; no deepening of the voice; no fast heart rate; no increased blood pressure; no palpitations; no chest pain; no chest tightess or pressure; no constipation; no diarrhea; no vomiting; no decreased appetite; no loose stools; no irregular menstrual periods; no excessive sweating; no joint pain; no numbness; no tingling of the hands or feet; no dry skin; no tremor; no nervousness; no anxiety; no depression; no fatigue; no sleep difficulties; no skin changes; no hair changes [place] [address] [facility] [address], [address], [place] [facility] 10/21/2022 13:04:22 023 text/ht ml DiabetesReported bypatient.Duration:chronic Control:usually well controlled Compliance:compliant with medications; compliant with follow-up visits; compliant with diet; compliant with home glucose monitoring; had eye doctor visit in last year;has not had dietitian visit in last year;does not wear a medic alert bracelet or necklace;does not keep rapid-acting carbohydrate in car Self Care:monitoring glucose daily Context:normal range of home blood sugars (in the low 100s); seeing eye doctor regularly; checking feet regularly;not taking aspirin daily Associated Symptoms:no weight gain; no weight loss; no dizziness; no sweats; no headaches; no confusion; no increased thirst; no increased appetite; no increased urination; no blurred vision; no numbness of feet; no calluses on feet; no coronary artery disease; no kidney disease; no peripheral vascular disease; no diabetic retinopathy; no diabetic neuropathyHypertensionReported bypatient.Duration:has noted for years Onset/Timing:better Alleviating Factors:medication Associated Symptoms:no shortness of breath; no fatigue; no palpitations; no decline in exercise capacity; no snoringHypothyroidismReported bypatient.Onset/Timing:better Context/Risk:normal thyroid levels; no history of head or neck radiation during childhood; no history of thyroid disease; no history of hyperthyroidism; no excess iron exposure;history of hypothyroidism Modifying Factors:medication Exercisegets exercise Associated Symptoms:no cold intolerance; no heat intolerance; no weight loss; no weight gain; no double vision; no dry eyes; no hoarseness; no difficulty swallowing; no neck masses; no deepening of the voice; no fast heart rate; no increased blood pressure; no palpitations; no chest pain; no chest tightess or pressure; no constipation; no diarrhea; no vomiting; no decreased appetite; no loose stools; no irregular menstrual periods; no excessive sweating; no joint pain; no numbness; no tingling of the hands or feet; no dry skin; no tremor; no nervousness; no anxiety; no depression; no fatigue; no sleep difficulties; no skin changes; no hair changes [place] [address] [facility], [facility] [address], [place], [address], [place] [facility] 03/19/2023 13:19:41
--- OUTSIDE RECORDS SUMMARY | 2024-07-31 14:05 | XMS_ITS | Referral Summary ---
Author Organization [facility] Address [address] [place] [address] Care Team Providers Care Powerhouse Attendant Name Role Phone Dar Camara MD Unavailable [phone] Chica Ramos Primary Care Pr ovider Eliz Luong Unavailable [phone] Encounters Date Type Department Care Team Description 06/25/2024 Telephone [facility] [address] [facility] [address] [place] [phone] Eliz Luong PA 06/18/2024 Orders Only [facility] [address] [facility] [address] [place] [phone] Eliz Luong PA Shoulder weakness (Primary Dx); Traumatic tear of left rotator cuff, unspecified tear extent, subsequent encounter 06/16/2024 Telephone [facility] [address] [place] [address] [address] [place] [phone] Blanche Juarez MA 05/19/2024 8:15 AM PACKAGING DESIGN ENGINEER Office Visit [facility] [address] [place] [address] Eliz Luong PA Shoulder weakness (Primary Dx); Traumatic tear of left rotator cuff, unspecified tear extent, subsequent encounter from Last 3 Months Allergies Active Allergy Reactions Criticality Noted Date [...] 01/23/2023 Assessment & Plan (05/30/2023 9:09 AM PACKAGING DESIGN ENGINEER): Moderate/marked spurring of L 1st CMC joint [...] at this time. Continue meloxicam 15mg daily. terminal carman current use of therapeutic drug 2022 Assessment & Plan (09/24/2023 8:14 AM CDT): Hepatitis panel negative: 03/2022 Assessment & Plan (05/30/2023 8:37 AM PACKAGING DESIGN ENGINEER): Hepatitis panel negative: 03/2022 Assessment & Plan [...] surgery. Assessment & Plan (05/30/2023 9:11 AM PACKAGING DESIGN ENGINEER): Low cdai. Initially c/o rash resembling psoriasis [...] needed. Assessment & Plan (05/17/2022 1:53 PM PACKAGING DESIGN ENGINEER): 57-year-old male presenting with a PMHx of [...] of psoriasis. Recommend further evaluation by a mailroom messenger. Start MTX 15mg weekly and folic acid 1mg daily. Patient advised of the side effects of the medication, including but not limited to increased risk of infection, GI upset, increased LFTs, mouth sores, rash, diarrhea, and/or blood count abnormalities. Continue meloxicam 15mg daily. Follow up in 1 month. Sooner if needed. Seen with Dr. Camara. Assessment & Plan (04/13/2022 12:29 PM PACKAGING DESIGN ENGINEER): 57-year-old male presenting with a PMHx of [...] psoriasis. Assessment & Plan (05/30/2023 9:08 AM PACKAGING DESIGN ENGINEER): Rash resembling psoriasis on bilateral lower legs [...] psoriasis. Assessment & Plan (05/17/2022 2:37 PM PACKAGING DESIGN ENGINEER): Rash resembling psoriasis on bilateral lower legs (L>R). Recommend otc topical cortisone cream. Suspect PsA so will monitor for improvement with tx of arthritis. Consider evaluation by derm for definitive diagnosis. Pt is going to establish with PCP soon and discuss referral then. Assessment & Plan (04/13/2022 12:34 PM PACKAGING DESIGN ENGINEER): Rash resembling psoriasis on bilateral lower legs (L>R). Recommend otc topical cortisone cream. Suspect PsA so will monitor for improvement with tx of arthritis. If rash worsens, persists could get dermatologic evaluation for further treatment/topicals. Paroxysmal atrial fibrillation 03/03/2018 Social History Tobacco Use Types Packs/Day Years [...] on file Legal Sex Male 8:29 PM PACKAGING DESIGN ENGINEER Gender Identity Not on file Sexual Orientation Not on file Last Filed Vital Signs Vital Sign Reading Time Taken Comments Blood Pressure 154/79 05/19/2024 8:18 AM PACKAGING DESIGN ENGINEER Pulse 69 05/19/2024 8:18 AM PACKAGING DESIGN ENGINEER Temperature 36.5 C (97.7 F) 11/21/2023 1:10 PM CDT Respiratory Rate 16 05/19/2024 8:18 AM PACKAGING DESIGN ENGINEER Oxygen Saturation 98% 11/21/2023 1:10 PM CDT Inhaled Oxygen Concentration - - Weight 118.7 kg (261 lb 11.2 oz) 05/19/2024 8:18 AM PACKAGING DESIGN ENGINEER Height 185.4 cm (6' 1 ) 05/19/2024 8:18 AM PACKAGING DESIGN ENGINEER Body Mass Index 34.53 05/19/2024 8:18 AM PACKAGING DESIGN ENGINEER Plan of Treatment Not on file Medical Devices Implanted Type Area Weight Loss Consultant Device Identifier Shelf Expiration Date Model / Serial / Lot [facility] [place] Suture Alphavent 4.75mm With 3-Strands 1.4mm Xbraid Tt [id number] - [id number] Implanted:Qty : 1 on 11/21/2023 by Az Real MD at [facility] Left: Shoulder [facility] [id number] 01/06/2025 [id number] / / [id number] [employer] Suture [place] Triple Loaded Knotless Fibertak 2.6mm Ar-3633sp - [id number] Implanted:Qty : 1 on 11/21/2023 by Az Real MD at [facility] Left: Shoulder [employer] [id number] 07/22/2028 AR-[id number] / / [id number] [employer] Swivelock C 4.75mm 19.1mm Closed Eyelet Vent [place] Suture Ar-2324bcc - [id number] Implanted:Qty : 1 on 11/21/2023 by Az Real MD at [facility] Left: Shoulder [employer] 04/24/2027 AR-2324BCC / / [id number] [employer] Swivelock C 4.75mm 19.1mm Closed Eyelet Vent [place] Suture Ar-2324bcc - [id number] Implanted:Qty : 1 on 11/21/2023 by Az Real MD at [facility] Left: Shoulder [employer] 04/24/2027 AR-2324BCC / / [id number] Procedures Procedure Name Priority Date/Time Associated Diagnosis Comments HEPATITIS PANEL, ACUTE Routine 04/13/2022 11:41 AM PACKAGING DESIGN ENGINEER Polyarthralgia Fatigue, unspecified type from Last 3 Months or Most Recently Relevant to Health Maintenance Results * Hepatitis panel, acute (04/13/2022 11:41 AM PACKAGING DESIGN ENGINEER) Hep A IgM NON-REACTI VE NON-REACT FLORESITA [facility] Comment: For additional information, please refer to [email or web address] (This link is being provided for informational/ [...] a test for HCV RNA (test code 62910) is suggested. For additional information please refer to [email or web address] (This link is being provided for informational/ educational purposes only.) Blood 04/13/2022 11:4 1 AM PACKAGING DESIGN ENGINEER 04/13/2022 11:41 AM PACKAGING DESIGN ENGINEER [facility] GE NERAL ORDERABLES Final Result [facility] [address] [address] [id number] from Last 3 Months or Most Recently Relevant to Health Maintenance [facility] [place] Care Teams Powerhouse Attendant Relationship Specialty Start Date End Date Chica Ramos PA [address] [place] [address] PCP - General Physician Air Twist Operator 04/13/22 Dar Camara MD [address] [place] [address] Consulting Physician Rheumatology 03/20/22 Eliz Luong PA [address] [place] [address] DR SUAREZ [address] [place] [id number] Physician Air Twist Operator Orthopedic Surgery 11/21/23
== END 2024-07-31 13:58 | disposition home or self-care (01) ==
PROVIDERS: PCP Physician Assistant; Visit Provider Physician Assistant
DX: M75.122 Complete rotator cuff tear or rupture of left shoulder, not specified as traumatic (principal); S43.432A Superior glenoid labrum lesion of left shoulder, initial encounter; M19.012 Primary osteoarthritis, left shoulder; S46.112A Strain of muscle, fascia and tendon of long head of biceps, left arm, initial encounter; X58.XXXA Exposure to other specified factors, initial encounter
CPT/HCPCS: 23350; 73222